=== PATIENT | female | born 1965 | race Caucasian/White ===

== ENCOUNTER 2021-12-09 10:08 | Emergency (ER) | payer BC, SELFPAY ==
--- NOTE | ~2021-12-09 | XR_ITS ---
EXAMINATION: XR chest 2V DATE: 12/09/2021 10:39 INDICATION: Cough. TECHNIQUE: Frontal and lateral views of the chest were obtained. COMPARISON: None. FINDINGS: There is mild atelectasis in the lower lung zones. No pleural effusion or pneumothorax. The heart size is normal. There are prominent paracardial fat pads. A surgical clip overlies the superio r mediastinum. IMPRESSION: 1. Mild atelectasis in the lower lung zones. Reviewed, dictated and finalized at location A.
[2021-12-09 10:22] VITALS: BP 116/67; PULSE 79; RESP 18; TEMP 36.6; O2SAT 96
--- NOTE | 2021-12-09 10:26 | ED.GENADULT ---
HPI - General Adult General Chief complaint: Upper Respiratory Infection Stated complaint: cough Time Seen by Provider: 12/09/21 10:20 Source: patient Mode of arrival: ambulatory Limitations: no limitations History of Present Illness HPI narrative: 56-year-old female presented for complaint of cough for 1 month. She states it is a tight nonproductive cough that causes pain in the front of the chest when coughing. She denies associated shortness of breath, wheezing, chest pain, dizziness, nausea, vomiting, diarrhea, fever or chills. She has taken several [id number] medications without any relief. Endorses sick contacts. She states she was in [place] approximately 1 month ago, and her was treated for pneumonia. Related Data Home Medications Medication Instructions Recorded Confirmed fluticasone propionate 1 spray INTRANASAL DIRECTED 12/09/21 12/09/21 levothyroxine 75 mcg PO DAILY 12/09/21 12/09/21 rosuvastatin 10 mg PO DAILY 12/09/21 12/09/21 umeclidinium-vilanterol [Anoro 1 inh INHALATION DIRECTED 12/09/21 12/09/21 Ellipta] Allergies Allergy/AdvReac Type Severity Reaction Status Date / Time No Known Allergies Allergy Verified 12/09/21 10:26 Review of Systems Review of Systems: CONSTITUTIONAL: Denies body aches, fever, chills, or sweats. EYES: Denies visual changes, redness, or discharge. ENT: Denies rhinorrhea, congestion, sore throat, or otalgia. CARDIOVASCULAR: Denies chest pain, palpitations, or edema. RESPIRATORY: Endorses cough denies dyspnea. GASTROINTESTINAL: Denies abdominal pain, nausea, vomiting, or diarrhea. GENITOURINARY: Denies dysuria or hematuria. SKIN: Denies rash, itching, or wounds. MUSCULOSKELETAL: Denies back pain, joint pain, or myalgia. NEUROLOGIC: Denies headache, numbness, tingling, or weakness. PSYCH: Denies depression or anxiety. All systems reviewed & are unremarkable except as noted in HPI and below PMFSH Comments At time of signature, I have reviewed and agree with nursing past medical, surgical, social and family history unless otherwise noted. Please see nursing chart for further information. There is no relevant family history pertinent to the presenting complaint Exam Narrative: GENERAL: Well-appearing, no acute distress. HEAD: Normocephalic, atraumatic. EYES: EOMI. Conjunctivae normal. ENT: Mucous membranes pink and moist. No rhinorrhea. NECK: Normal AROM. Supple. CHEST: No respiratory distress. Clear to auscultation. HEART: Regular rate and rhythm. No murmur appreciated. Normal peripheral pulses. ABDOMEN: Soft, nontender, nondistended, normal active bowel sounds. MUSCULOSKELETAL: No bony tenderness. EXTREMITIES: Normal range of motion. No edema. SKIN: Warm, dry, no rash. Capillary refill normal. Normal skin turgor. NEURO: No focal deficits. Alert and oriented x3. Gait steady. PSYCH: Normal affect. Course Course Emergency Course: Patient is aware of diagnosis, understands and agrees to treatment plan. Anticipatory guidance given. Patient agrees to follow-up as directed and is aware of reasons to seek care at the emergency department. Portions of this record may have been created with voice recognition software Level of Care: Express Care Visit Vital Signs Vital signs: Vital Signs Temperature 97.9 F 12/09/21 10:22 Pulse Rate 79 12/09/21 10:22 Respiratory Rate 18 12/09/21 10:22 Blood Pressure 116/67 12/09/21 10:22 Pulse Oximetry 96 12/09/21 10:22 Temperature 97.9 F 12/09/21 10:22 Pulse Rate 79 12/09/21 10:22 Respiratory Rate 18 12/09/21 10:22 Blood Pressure 116/67 12/09/21 10:22 Pulse Oximetry 96 12/09/21 10:22 Medical Decision Making MDM Narrative Medical decision making narrative: CXR reviewed with pt. Discussed treatment for bronchitis and supportive care. v/u. She is appropriate for outpt treatment and will f/u with PCP. Differential Diagnosis Differential Diagnosis: Influenza, covi
== END 2021-12-09 11:03 | disposition home or self-care (01) ==
PROVIDERS: Emergency Provider Nurse Practitioner Family; PCP Physician Assistant
DX: J40 Bronchitis, not specified as acute or chronic (principal); E78.00 Pure hypercholesterolemia, unspecified
CPT/HCPCS: 71046; 99213; G0463

== ENCOUNTER 2023-02-24 08:12 | Emergency (ER) | payer BC, SELFPAY ==
[2023-02-24 08:31] VITALS: BP 122/57; PULSE 86; RESP 16; TEMP 36.2; O2SAT 98
[2023-02-24 08:32] VITALS: BP 122/57; PULSE 86; RESP 16; TEMP 36.2; O2SAT 98
--- NOTE | 2023-02-24 08:48 | ED.FEMALEGU ---
HPI - Female Genitourinary General Chief complaint: Urogenital-Female Stated complaint: uti symptoms Time Seen by Provider: 02/24/23 08:44 Source: patient and RN notes reviewed Mode of arrival: ambulatory Limitations: no limitations History of Present Illness HPI Narrative: Patient presents today complaining of an 8 day history of urinary frequency, urgency, and dysuria for 8 days. States symptoms are somewhat intermittent. She also reports some mild suprapubic pain. Denies neck pain, fever, nausea or vomiting. She took 1 dose of azo 1 week ago without relief. Related Data Home Medications Medication Instructions Recorded Confirmed levothyroxine 75 mcg tablet 75 mcg PO DAILY 12/09/21 02/24/23 rosuvastatin 10 mg tablet 10 mg PO DAILY 12/09/21 02/24/23 umeclidinium 62.5 mcg-vilanterol 1 inh inhalation DIRECTED 12/09/21 02/24/23 25 mcg/actuation powdr for inhalation (Anoro Ellipta) dextroamphetamine-amphetamine ER 20 mg PO DAILY 02/24/23 02/24/23 20 mg 24hr capsule,extend release (Adderall XR) thyroid (pork) 30 mg tablet (STREETCAR OPERATOR 30 mg PO DAILY 02/24/23 02/24/23 Thyroid) Allergies Allergy/AdvReac Type Severity Reaction Status Date / Time No Known Allergies Allergy Verified 02/24/23 08:30 Review of Systems Review of Systems: CONSTITUTIONAL: Denies body aches, fever, chills, or sweats. EYES: Denies visual changes, redness, or discharge. ENT: Denies rhinorrhea, congestion, sore throat, or otalgia. CARDIOVASCULAR: Denies chest pain, palpitations, or edema. RESPIRATORY: Denies cough or dyspnea. GASTROINTESTINAL: Denies nausea, vomiting, or diarrhea.+ suprapubic pain GENITOURINARY: Denies hematuria.+ dysuria, urgency, frequency SKIN: Denies rash, itching, or wounds. MUSCULOSKELETAL: Denies back pain, joint pain, or myalgia. NEUROLOGIC: Denies headache, numbness, tingling, or weakness. PSYCH: Denies depression or anxiety. [facility] Past Medical History Medical History (Updated 02/24/23 @ 08:52 by Queenie Suh, [employer]ATE JUSTICE, [place]) ADD (attention deficit disorder) COPD (chronic obstructive pulmonary disease) High cholesterol Surgical History Surgical History (Updated 02/24/23 @ 08:50 by Queenie Suh, [employer]ATE JUSTICE, ) H/O partial thyroidectomy Comments At time of signature, I have reviewed and agree with nursing past medical, surgical, social and family history unless otherwise noted. Please see nursing chart for further information. There is no relevant family history pertinent to the presenting complaint Exam Narrative: GENERAL: Well-appearing, well-nourished, and in no acute distress. HEAD: Normocephalic, atraumatic. EYES: EOMI. No redness or drainage. Conjunctivae normal. ENT: Mucous membranes pink and moist. NECK: Normal AROM. CHEST: No respiratory distress. Clear to auscultation. HEART: Regular rate and rhythm. No murmur appreciated. ABDOMEN: Soft, nontender, nondistended, normal active bowel sounds.-CVAT EXTREMITIES: Normal range of motion. No edema. SKIN: Warm, dry, no rash. Capillary refill normal. Normal skin turgor. NEURO: No focal deficits. Alert and oriented x3. Gait steady. PSYCH: Normal affect. No signs of depression or anxiety. Course Course Level of Care: Express Care Visit Vital Signs Vital signs: Vital Signs Temperature 97.2 F L 02/24/23 08:31 Pulse Rate 86 02/24/23 08:31 Respiratory Rate 16 02/24/23 08:31 Blood Pressure 122/57 L 02/24/23 08:31 Pulse Oximetry 98 02/24/23 08:31 Oxygen Delivery Room Air 02/24/23 08:31 Temperature 97.2 F L 02/24/23 08:32 Pulse Rate 86 02/24/23 08:32 Respiratory Rate 16 02/24/23 08:32 Blood Pressure 122/57 L 02/24/23 08:32 Pulse Oximetry 98 02/24/23 08:32 Oxygen Delivery Room Air 02/24/23 08:32 Reviewed. Pt has been instructed to follow up with her PCP regarding her elevated blood pressure today. MDM - Female Genitourinary MDM Narrative Medical decision making narrative: AMNA ritchie
== END 2023-02-24 08:53 | disposition home or self-care (01) ==
PROVIDERS: Emergency Provider Nurse Practitioner; PCP Physician Assistant
DX: N30.01 Acute cystitis with hematuria (principal); J44.9 Chronic obstructive pulmonary disease, unspecified; E78.00 Pure hypercholesterolemia, unspecified; E89.0 Postprocedural hypothyroidism; F98.8 Other specified behavioral and emotional disorders with onset usually occurring in childhood and adolescence
CPT/HCPCS: 81003; 87086; 87088; 99213; G0463

== ENCOUNTER 2023-11-02 14:26 | Outpatient (CLI) | payer BC, SELFPAY ==
--- NOTE | ~2023-11-02 | XR_ITS ---
EXAMINATION: XR hand RT min 3V, XR wrist RT min 3V DATE: 11/02/2023 14:47 INDICATION: Radial sided right hand and wrist pain TECHNIQUE: 1. Posteroanterior, ulnar deviation, oblique, and lateral views of the right wrist were obtained. 2. Dorsal palmar, oblique and lateral views of the right hand were obtained. COMPARISON: None. FINDINGS: Alignment of the right hand and wrist is normal. No fracture identified. Polyarticular osteoarthriti s, moderate severity at the triscaphe joint and mild at the wrist, midcarpal, first carpal metacarpal , first metacarpophalangeal and multiple interphalangeal joints with distal predominance. Soft tissue s are unremarkable. IMPRESSION: 1. Polyarticular osteoarthritis at the right hand and wrist, moderate at the triscaphe joint and othe rwise mild. Reviewed, dictated and finalized at location A. MANAGER IMPRESSION: 1. Polyarticular osteoarthritis at the right hand and wrist, moderate at the tr iscaphe joint and otherwise mild.
== END 2023-11-02 14:27 | disposition home or self-care (01) ==
PROVIDERS: PCP Physician Assistant; Visit Provider Physician Assistant
DX: M19.041 Primary osteoarthritis, right hand (principal); M19.031 Primary osteoarthritis, right wrist
CPT/HCPCS: 73110; 73130

== ENCOUNTER 2024-01-14 10:31 | Outpatient (RCR) | payer BC, SELFPAY ==
--- NOTE | 2024-01-14 11:43 | OPREHPOC ---
Outpatient Therapy Plan of Care This is a Multidisciplinary Plan of Care that may contain components documented by all disciplines (PT, OT, and ST.) OT Problem 1 OT Problem #1 Knowledge Deficit OT Goal 1 Goal 1. Patient to be independent with instructed materials. 2. Patient to adhere to splint wearing schedule ( during the day, with activity). Target Visit 6 OT Problem 2 OT Problem #2 Pain OT Goal 1 Goal 1. Patient to report times of 0/10 pain in bilateral hands. 2. Patient to be independent with non-medication pain mgmt. Target Visit 6 OT Problem 3 OT Problem #3 Impaired Strength OT Goal 1 Goal 1. Patient to be able to tolerate gross wrist strengthening with 2 lb. free weight x10 reps without pain. 2. Patient to be able to tolerate gross medical staff assistant/pinch strengthening with yellow putt x5 minutes without pain. Target Visit 6
--- NOTE | 2024-01-14 11:43 | OTOPEVAL1 ---
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 She reports she is able to do all the things she needs to do for herself in a day, but just always has pain. States pinching to open up bags is the worst pain. Reports pain is localized to the thumbs, but that it does bother her DIP joints also. Reporting pain is always about 3/10, can get up to 10/10 on a bad day . Reported Pain Level Pain Score 3/10 at rest Assessment OT Clinical Summary Patient referred to OT with dx of bilateral basal joint arthritis of her thumbs. She has been experiencing pain with all ADLs and work tasks. Fabricated a custom short thumb spica splint this date to rest the affected 1st CMC joint. Instructed in gentle active ROM exercises. Continued skilled OT indicated for fabrication of a left thumb splint, education on joint protection principles, and progressive gentle strengthening to facilitate reduced pain and improved functional use of bilateral hands. Plan of Care Interventions Therapeutic Exercise,Manual Therapy,Therapeutic Activities,Check Out for Orthotic/Pr,Ultrasound, Paraffin OT Services Indicated Yes Treatment Frequency and 1x/week for 6 visits Duration These treatments will address the objective and functional deficits as defined above. The patient will be advanced safely and appropriately in order for the patient to progress towards his/her prior level of function. Additional exercises will be introduced and as well as a comprehensive home exercise program upon discharge, if needed, ?to ensure carryover of functional gains achieved in the clinic. This treatment plan has been reviewed and agreement upon by the patient.
--- NOTE | 2024-04-13 08:10 | OTOPDC ---
Assessment and note entered by Huber Aviles, BATSHEVAR/Bre, CHT Patient referred to OT for bilateral 1st CMC OA. Fabricated right orthotic at the initial OT evaluation appointment on 01/14/24. She never returned follow up appointments. Discharging from OT at this time. Thank you for this referral.
== END 2024-03-29 11:32 | disposition home or self-care (01) ==
LOC: ANHOT 10:31
PROVIDERS: PCP Physician Assistant; Visit Provider Plastic Surgery
DX: M18.9 Osteoarthritis of first carpometacarpal joint, unspecified (principal)
CPT/HCPCS: 97110; 97165; L3913

== ENCOUNTER 2025-05-21 12:04 | Outpatient (CLI) | payer OTHER, SELFPAY ==
--- NOTE | ~2025-05-21 | XR_ITS ---
EXAMINATION: XR sacroiliac joints min 3V, 05/21/2025 12:10 CDT HISTORY: Arthropathic psoriasis COMPARISON: No comparisons available. Findings: No acute fracture or malalignment. Sclerosis of the sacroiliac joint but no bridging osteophyte formation or erosions Soft tissues unremarkable. Impression: No acute fracture or malalignment. Reviewed, dictated and finalized at location A. Impression: No acute fracture or malalignment.
--- NOTE | ~2025-05-21 | XR_ITS ---
XR lumbar spine min 4V Indication: Arthropathic psoriasis Comparison: None Findings: The vertebral heights are intact. No fracture or subluxation. The disc heights are intact. Soft tissues unremarkable Impression: No acute abnormality. Reviewed, dictated and finalized at location A. Impression: No acute abnormality.
== END 2025-05-21 12:05 | disposition home or self-care (01) ==
LOC: MICIMG 12:07
PROVIDERS: PCP Physician Assistant; Visit Provider Internal Medicine
DX: L40.50 Arthropathic psoriasis, unspecified (principal)
CPT/HCPCS: 72110; 72202

== ENCOUNTER 2025-07-07 09:15 | Emergency (ER) | payer OTHER, SELFPAY ==
--- NOTE | ~2025-07-07 | CT_ITS ---
CT abdomen pelvis w con Clinical History: abd paIn . Comparison: None Technique: Axial images lung bases to symphysis pubis IV contrast information not listed in PACS Coronal, sagittal reformats CT images acquired with automatic exposure control for dose reduction DLP: 263 mGy-cm Findings: Lung bases: Clear. Visualized heart and pericardium: Unremarkable. Liver: Steatosis. Gallbladder: Unremarkable. Spleen: Unremarkable. Pancreas: Unremarkable. Adrenal glands: Unremarkable. Kidneys: Right kidney- No hydronephrosis. No renal stones. Left kidney- No hydronephrosis. No renal stones. Circumaortic renal vein. Distal esophagus/stomach: Unremarkable. Small bowel loops: Normal caliber and wall thickness. Colon: Diverticula. Wall thickening distally. Normal RLQ appendix. Nodes: No enlarged nodes. Peritoneum: No ascites. No free air. Urinary bladder: Unremarkable. Uterus: Unremarkable. Adnexa: No masses. Bones: No acute bony abnormality. Soft tissues: Unremarkable. Aorta: No aneurysm or dissection. Atherosclerotic disease. IVC: Unremarkable. Main portal vein/SMV/splenic vein: Patent. IMPRESSION: 1. Colitis of distal colon. Unclear if diverticular or inflammatory, but malignancy also possible. Reviewed, dictated and finalized at location R. PHONE MESSENGER IMPRESSION: 1. Colitis of distal colon. Unclear if diverticular or inflammatory, but malig morgan also possible.
[2025-07-07 09:28] VITALS: BP 132/70; PULSE 70; RESP 18; TEMP 36.4; O2SAT 100
--- NOTE | 2025-07-07 10:00 | ED.ABDPAIN ---
HPI - Abdominal Pain General Chief Complaint: Abdominal Pain Stated Complaint: constipated Time Seen by Provider: 07/07/25 09:56 Source: patient and family Mode of arrival: ambulatory Limitations: no limitations History of Present Illness HPI narrative: 60 years old white female came from home with her by private car complaining of constipation for the last 8 days, poor p.o. intake, started on methotrexate recently for psoriasis. Patient denies any fever, chills, vomiting, diarrhea, urinary symptoms, complaining of diffuse abdominal tenderness and discomfort, bloating, reported decreased appetite History of hypothyroidism and hyperlipidemia and psoriasis. Patient smokes cigarettes, drink occasionally, no drug use or abuse. Related Data Home Medications ?Medication ?Instructions ?Recorded ?Confirmed ?Last Taken ?Type levothyroxine 75 mcg tablet 75 mcg PO DAILY 12/09/21 12/21/23 Unknown History rosuvastatin 10 mg tablet 10 mg PO DAILY 12/09/21 12/21/23 Unknown History umeclidinium 62.5 mcg-vilanterol 1 inh inhalation DIRECTED 12/09/21 12/21/23 Unknown History 25 mcg/actuation powdr for inhalation (Anoro Ellipta) dextroamphetamine-amphetamine ER 20 mg PO DAILY 02/24/23 12/21/23 Unknown History 20 mg 24hr capsule,extend release (Adderall XR) thyroid (pork) 30 mg tablet (SAMPLE EXAMINER 30 mg PO DAILY 02/24/23 12/21/23 Unknown History Thyroid) Allergies Allergy/AdvReac Type Severity Reaction Status Date / Time No Known Allergies Allergy Verified 07/07/25 09:32 Review of Systems Review of Systems: All systems reviewed & are unremarkable except as noted in HPI and below PMFSH Past Medical History Medical History High cholesterol ADD (attention deficit disorder) COPD (chronic obstructive pulmonary disease) Surgical History Surgical History H/O partial thyroidectomy Social History Social History Do You Feel Safe in your Home?: Yes Lack of Transportation: No Lack of Food: Never True Current Housing: I Have Housing Concerned About Future Housing: No Difficulty Paying Gas/Electric Bills: No Difficulty Paying for Meds: No Currently Unemployed: No Education: High School Diploma/GED Difficulty w/ Childcare or Family Care: No Exam Narrative: General appearance: Well-developed, well-nourished Skin: Normal color Head: Normocephalic, nontraumatic Eyes: Clear conjunctiva ENT: Oropharynx normal, ears normal, nose normal Neck: Supple, nontender Chest and respiratory: Airway patent, no respiratory distress, no accessory muscle use Heart: Regular rate/rhythm Abdomen: Soft, diffuse abdominal tenderness mainly epigastric area, no guarding or rebound , no organomegaly, quiet bowel sounds Vascular: Normal peripheral pulses, normal capillary refill. 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 LOAN PROCESSOR is normal as tested, no gross motor deficit Course Vital Signs Vital signs: Vital Signs Temperature 36.4 C L 07/07/25 09:28 Pulse Rate 70 07/07/25 09:28 Respiratory Rate 18 07/07/25 09:28 Blood Pressure 132/70 07/07/25 09:28 Pulse Oximetry 100 07/07/25 09:28 Temperature 36.4 C L 07/07/25 09:28 Pulse Rate 87 07/07/25 12:51 Respiratory Rate 18 07/07/25 12:51 Blood Pressure 131/78 07/07/25 12:51 Pulse Oximetry 99 07/07/25 12:51 MDM - Abdominal Pain MDM Narrative Medical decision making narrative: Patient presents with abdominal pain and constipation Vital signs are stable Physical examination consistent with diffuse abdominal tenderness Differential diagnosis include constipation, medication induced, gastritis, pancreatitis, colitis, diverticulitis, urinary tract infection Blood workup today includes CBC, CMP, lipase and lactic acid showed WBC 10.4, OTHERWISE WITHIN NORMAL LIMIT URINALYSIS SHOWED NO SIGNIFICANT ABNORMALITY CT abdomen and pelvis with IV contrast showed COLITIS, MALIGNANCY ALSO POSSIBLE. DIAGNOSIS ABDOMINAL PAIN, COLITIS DISCHARGED ON LEVAQUIN AND FLAGYL THE PT WAS DISCHARGED TO HOME.THE PT,S CONDITION UPON DISCHARGE WAS FAIR,EDUCATION WAS PROVIDED TO THE PT IN REFERENCE TO THE FINAL IMPRESSION,DISCHARGE STUDY RESULTS,TREATMENT,PROGNOSIS AND NEED FOR FOLLOW UP . Differential Diagnosis Differential diagnosis: Likely other (As above) Medical Records Attestation: I reviewed the patient's medical records. Lab Data Attestation: I reviewed the patient's lab results. 07/07/25 10:56 07/07/25 10:56 Labs: Lab Results 07/07/25 07/07/25 Range/Units 10:12 10:56 WBC 10.4 H (4.5-10.0) K/mm3 RBC 5.54 H (4.2-5.4) M/mm3 Hgb 14.7 (12.0-15.0) g/dL Hct 46.1 (37.0-47.0) % MCV 83.2 (80-100) fl MCH 26.5 (26-34) pg MCHC 31.9 L (32-36) g/dl RDW 14.4 (11.5-14.5) % Plt Count 266 (150-375) k/mm3 MPV 9.5 (7.4-10.4) fl Immature Gran % (Auto) 0.4 (0-0.5) % Neut % (Auto) 78.1 H (45.5-73.1) % Lymph % (Auto) 14.3 L (18.3-44.2) % [place] % (Auto) 4.2 (2.6-8.5) % Eos % (Auto) 2.6 (0-4.4) % Baso % (Auto) 0.4 (0.2-1.2) % Lymph # (Auto) 1.48 (0.9-3.2) K/mm3 [place] # (Auto) 0.4 (0.1-0.6) K/mm3 Eos # (Auto) 0.3 (0-0.3) K/mm3 Baso # (Auto) 0.0 (0.0-0.1) K/mm3 Abs Immat Gran (auto) 0.04 H (0.00-0.031) K/mm3 Absolute Neuts (auto) 8.1 H (1.3-6.7) K/mm3 Absolute Nucleated RBC 0.000 (0.0-0.012) K/mm3 Nucleated RBC % 0.0 (0.0-0.2) % PT 12.7 (11.1-14.7) Seconds INR 0.9 APTT 27.6 (22.3-36.8) Seconds Sodium 135 L (137-145) mmol/L Potassium 4.4 (3.4-5.0) mmol/L Chloride 102 (98-107) mmol/L Carbon Dioxide 26 (22-30) mmol/L Anion Gap 7 (4-12) mmol/L BUN 16 (7-17) mg/dL Creatinine 0.97 (0.7-1.0) mg/dL Estim Creat Clear Calc 56 ml/min Estimated GFR 59 (59 - ) Glucose 101 (65-110) mg/dL Lactic Acid 0.8 (0.7-2.0) mmol/L Calcium 9.3 (8.4-10.2) mg/dL Total Bilirubin 0.9 (0.2-1.3) mg/dL AST 29 (14-36) U/L ALT 20 (6-35) U/L Alkaline Phosphatase 82 (38-126) U/L Troponin I < 0.012 (0.000-0.034) ng/mL Total Protein 8.1 (6.3-8.2) g/dL Albumin 4.7 (3.5-5.1) g/dL Lipase 292 (23-300) U/L Urine Color Yellow (Yellow) Urine Appearance Cloudy H (Clear) Urine pH 7.0 (5.0-9.0) Ur Specific [place] 1.010 (1.001-1.035) Urine Protein Negative (Negative) mg/dL Urine Glucose (UA) Negative (Negative) mg/dL Urine Ketones Negative (Negative) mg/dL Ur Blood (Man) Negative (Negative) Urine Nitrate Negative (Negative) Urine Bilirubin Negative (Negative) Urine Urobilinogen 0.2 (<2.0) mg/dL Leukocyte Esterase Rfl Trace H (Negative) LISA/UL Urine RBC 0-2 (0-2) /hpf Urine WBC 0-5 (0-3) /hpf Ur Squamous Epith Cells Occasional (Few) /hpf Urine Bacteria None seen /hpf Urine Casts 0-2 Imaging Data Radiologist's impression: ITS Impressions Abdomen/Pelvis CT 07/07/25 12:01 IMPRESSION: 1. Colitis of distal colon. Unclear if diverticular or inflammatory, but malignancy also possible. Critical Care Time Critical Care Time Critical Care Time: No Discharge Plan Discharge Clinical Impression: Colitis Patient Disposition: Home Condition: Stable Instructions: Antibiotic Form, Diverticulitis Diet (ED), Colitis (ED) Additional Instructions: RETURN IF SYMPTOMS ARE WORSENING , CALL YOUR FAMILY PHYSICIAN FOR APPOINTMENT, TAKE TYLENOL NEEDED FOR ACHES AND PAIN, CONTINUE HOME MEDICATIONS. Patient Language: Yoruba Prescriptions: New levofloxacin 750 mg tablet 750 mg PO DAILY Qty: 7 5RF metronidazole 500 mg tablet 500 mg PO Q8H 7 Days Qty: 21 0RF No Action levothyroxine 75 mcg tablet 75 mcg PO DAILY rosuvastatin 10 mg tablet 10 mg PO DAILY Anoro Ellipta 62.5-25 mcg/actuation blister with device 1 inh INHALATION DIRECTED dextroamphetamine-amphetamine [Adderall XR] 20 mg capsule,extended release 24hr 20 mg PO DAILY SAMPLE EXAMINER Thyroid 30 mg tablet 30 mg PO DAILY cephalexin 500 mg capsule 500 mg PO Q6H 7 Days Qty: 28 0RF Follow-up/Referrals: Parent,ERVIN Barbosa [Primary Care Provider, Unknown] Barrera Fortune MD [Physician, Gastroenterology] - 07/13/25
--- OUTSIDE RECORDS SUMMARY | 2025-07-07 10:04 | XMS_ITS | Clinical Summary ---
Author Organization [facility] Medical Office Building [address] [place] [id number] Care Team Providers Care Audio Visual Production Specialist Name Role Phone Parent, Екатерина MUELLER Primary Care Provider [phone] Surgical History Surgery Date Site/Laterality Comments ENDOMETRIAL ABLATION Family History Medical History Relation Name Comments Breast cancer Sister Relation Name Status Comments Sister Social History Tobacco Use Types Packs/Day Years Used Date Smoking Tobacco: Never Assessed Comments No Sex and Gender Information Value Date Recorded Sex Assigned at Not on file 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 Gender Identity Not on file Sexual Orientation Not on file Obstetrics History Para Term AB IAB SAB Ectopic Multiple Livin g Live Births 4 4 4 Date Outcome GA Total Labor Labor/2nd/3rd Weight Sex Type Anes PTL Linda A1 A5 Name Clin Term Term Term Term Last Filed Vital Signs Vital Sign Reading Time Taken Comments Blood Pressure 114/53 03/29/2017 8:22 AM CDT Pulse 71 03/29/2017 8:22 AM CDT Temperature 36.6 C (97.8 F) 03/29/2017 8:22 AM CDT Respiratory Rate - - Oxygen Saturation 97% 03/29/2017 8:22 AM CDT Inhaled Oxygen Concentration - - Weight 77.7 kg (171 lb 6.4 oz) 03/29/2017 8:22 A M CDT Height 172.7 cm (5' 8) 03/29/2017 8:22 AM CDT Body Mass Index 26.06 03/29/2017 8:22 AM CDT Plan of Treatment Health Maintenance Due Date Last Done Comments Cervical Cancer Screening 1966 Colon Cancer Screening-Colonoscopy 1966 Depression Screening 1966 Hepatitis C Screening 1966 Hepatitis B Screening 02/20/1984 Regular Well Visit/Exam 18-64 02/20/1984 Pneumococcal vaccine <65 (1 of 2 - PCV) 1985 Zoster Vaccine (2 of 2) 09/27/2022 08/02/2022 Covid-19 Vaccine (4 - 2024-2 6 season) 2025 08/02/2022, 09/08/2021, 11/01/2020 Influenza Vaccine (#1) 2025 , 07/06/2022, 09/08/2021, Additional history exists Breast Cancer Screening-Mammogram 02/16/2026 02/16/2025, 10/13/2023, 09/18/2020, Additional history exists DTaP/Tdap/Td Vaccine (3 - Td or Tdap) 10/04/2033 10/04/2023, 10/14/2011 Procedures Procedure Name Priority Date/Time Associated Diagnosis Comments SCREENING MAMMOGRAM BILATERAL W YASSINE Schedule Routine, Read Routine (OP Routine) 02/16/2025 10:50 AM CDT Encounter for other screening for malignant neoplasm of breast from Last 3 Months or Most Recently Relevant to Health Maintenance Results * Screening Mammogram Bilateral W Yassine (02/16/2025 10:50 AM CDT) Anatomical Region Laterality Modality Breast Bilateral Mammography Impressions 02/16/2025 11:05 AM CDT Bilateral No evidence of malignancy in either breast. OVERALL BI-RADS FINAL ASSESSMENT: 2 - Benign RECOMMENDATION: Recommend bilateral annual screening mammography. Narrative 02/16/2025 11:05 AM CDT EXAMINATION: Screening Mammogram Bilateral W Yassine: 02/16/2025 COMPARISON: Relevant prior studies available at the time of interpretation were reviewed. TECHNIQUE: Mammography was performed with 2D and digital breast tomosynthesis (DBT) images. CAD was utilized. BREAST PARENCHYMAL COMPOSITION: There are scattered areas of fibroglandular density. FINDINGS: Bilateral There is no suspicious mass, calcification, or architectural distortion in either breast. us Екатерина MUELLER IMG MAMMO PROCEDURES Final R esult from Last 3 Months or Most Recently Relevant to Health Maintenance Insurance Care Teams Audio Visual Production Specialist Relationship Specialty Start Date End Date Екатерина Bowers PA PCP - General 06/27/20
--- OUTSIDE RECORDS SUMMARY | 2025-07-07 10:04 | XMS_ITS | Encounter Summary ---
Author Organization 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 Historical Provider Final Res ult documented in this encounter Visit Diagnoses Not on filedocumented in this encounter Care Teams Museum Exhibit Technician Relationship Specialty Start Date End Date Stephanie Guzmán MD PCP - General 05/15/19 06/26/20 Екатерина Bowers PA PCP - General 06/27/20 documented as of this encounter
--- OUTSIDE RECORDS SUMMARY | 2025-07-07 10:04 | XMS_ITS | Data Portability ---
Author Organization [facility] Address [address] [address] Care Team Providers Care Rn Surgery Name Role Phone MILTON JEONG Hand Shoe Cutter MED EVENING OR NIGHT NURSE SUPERVISOR, TEAM Rn Case Manager Unavailabl e Assessment No assessment recorded. Plan of Treatment Reminders Order Date Submit Date Provider Last Modified By Organization Details Last Modified Time Details Appointments None recorded. Lab T4, free, serum 2024 025 [place], [address], [address], 5 08:12:37 TSH, serum or plasma 2024 025 [place] [facility], [address], [address], 5 08:12:38 CBC w/ auto diff 2024 025 [place] [facility], [address], [address], 5 08:12:36 lipid panel, serum 2024 025 [place] [facility], [address], [address], 5 08:12:33 CMP, serum or plasma 2024 025 [place] [facility], [address] [place], [address], 08:12:35 Referral None recorded. Procedures cryosurgery (PROC) 2023 024 [facility] Not available 16:00:13 Surgeries None recorded. Imaging MAMMO, screening, digital, bilateral 2024 [facility] Scheduling, [address] [place] [address], [address], 12:07:52 bone density 2024 [facility] Scheduling, [address] [place] [address], [address], 19:47:50 Medication Orders dextroamphe tamine-amph etamine ER 20 mg 24hr capsule,ext end release [address] [id number], [address] [place], [place], [id number], 14:23:50 dextroamphe tamine-amph etamine ER 20 mg 24hr capsule,ext end release [address] [facility][id number], [address] [place], [place], [id number], 14:44:54 dextroamphe tamine-amph etamine ER 20 mg 24hr capsule,ext end release 2024 025 [facility]92511, [address] [place], [place], [id number], 5 12:34:08 dextroamphe tamine-amph etamine ER 20 mg 24hr capsule,ext end release 2023 024 [facility] #20830, [address] [place], [place], [id number], 10:52:53 ketoconazol e 200 mg tablet 2023 [facility] #39399, [address] [facility], [place], [place], [id number], 10:38:13 ketoconazol e 2 % shampoo 2023 [facility] #88447, [address] [facility], [place], [place], [id number], 4 10:38:14 dextroamphe tamine-amph etamine ER 20 mg 24hr capsule,ext end release 2023 [facility] #35862, [address] [facility], [place], [place], [id number], 11:14:59 Patient TargetsNo targets recorded. Patient InstructionsNo instructions recorded. Reason for Referral None Reported. Results Created Date Observation Date Name Description Value Unit Range Abnormal Flag Note LastModifiedBy Organization Detail LastModifiedTime 12/07/1912/07/2024 LIPID PANEL , [place] cholesterol, total 161 mg/dL <200 normal Not Available [facility] [address] [place] [address] [place], [address], 12/07/2024 08:12:33 12/07/1912/07/2024 LIPID PANEL , [place] HDL cholesterol 60 mg/dL > or = 50 normal Not Available [facility] [address] [address] [place], [address], 12/07/2024 08:12:33 12/07/1912/07/2024 LIPID PANEL , [place] triglyceride s 130 mg/dL <150 normal Not Available [employer] [address] [address] [place], [address], 12/07/2024 08:12:33 12/07/1912/07/2024 LIPID PANEL , [place] LDL-choleste rol 78 mg/dL _(mandy c) normal Refer ence range : <100 Jaime able range <100 mg/dL for prima ry preve ntion ; <70 mg/dL for patie nts with CHD or diabe tic patie nts with > or = 2 CHD risk facto rs. LDL-C is now calcu lated using the Yulissa n-Hop kins jose manuelu ramone n, which is a valid ated novel metho d provi ding daniela r accur acy than the Fried lauren equat ion in the estim ation of LDL-C . Yulissa marroquin SS et al. LEAH. 2013; 310(1 0): 2061- 2068 (http ://ed ucati on.Qu Lisandra Easyaula. com/f aq/FA Q164) Not Available [facility] [address], [address], 12/07/2024 08:12:33 12/07/1912/07/2024 LIPID PANEL , [place] chol/HDLC ratio 2.7 (calc ) <5.0 normal Not Available [address], [address], 12/07/2024 08:12:33 12/07/1912/07/2024 LIPID PANEL , [place] non HDL cholesterol 101 mg/dL _(mandy c) <130 normal For patie nts with diabe armin plus 1 major ASCVD risk facto r, treat ing to a non-H DL-C goal of <100 mg/dL (LDL- C of <70 mg/dL ) is consi dered a thera peuti c optio n. Not Available [address], [address], 12/07/2024 08:12:33 12/07/1912/07/2024 COMPR EHENS NATALYA METAB OLIC PANEL glucose 96 mg/dL 65-99 normal Fasti ng refer ence inter mary alice Not Available [employer] [facility] [address], [address], 12/07/2024 08:12:35 12/07/19 25 12/07/2024 COMPR EHENS NATALYA METAB OLIC PANEL urea nitrogen (BUN) 16 mg/dL 7-25 normal Not Available [address], [address], 12/07/2024 08:12:35 12/07/19 25 12/07/2024 COMPR EHENS NATALYA METAB OLIC PANEL creatinine 0.87 mg/dL 0.50-1 .03 normal Not Available [address], [address], 12/07/2024 08:12:35 12/07/19 25 12/07/2024 COMPR EHENS NATALYA METAB OLIC PANEL eGFR 77 mL/mi n/1.7 3m2 > or = 60 normal Not Available [address], [address], 12/07/2024 08:12:35 12/07/19 25 12/07/2024 COMPR EHENS NATALYA METAB OLIC PANEL BUN/creatini ne ratio SEE NOTE: (calc ) 6-22 Not Repor jaiden: BUN and Creat inine are withi n refer ence range . Not Available [address], [address], 12/07/2024 08:12:35 12/07/19 25 12/07/2024 COMPR EHENS NATALYA METAB OLIC PANEL sodium 137 mmol/ L 135-14 6 normal Not Available [address], [address], 12/07/2024 08:12:35 12/07/19 25 12/07/2024 COMPR EHENS NATALYA METAB OLIC PANEL potassium 4.7 mmol/ L 3.5-5. 3 normal Not Available [address], [address], 12/07/2024 08:12:35 12/07/19 25 12/07/2024 COMPR EHENS NATALYA METAB OLIC PANEL chloride 102 mmol/ L 98-110 normal Not Available [address], [address], 12/07/2024 08:12:35 12/07/19 25 12/07/2024 COMPR EHENS NATALYA METAB OLIC PANEL carbon dioxide 28 mmol/ L 20-32 normal Not Available [address], [address], 12/07/2024 08:12:35 12/07/19 25 12/07/2024 COMPR EHENS NATALYA METAB OLIC PANEL calcium 10.2 mg/dL 8.6-10 .4 normal Not Available [address], [address], 12/07/2024 08:12:35 12/07/19 25 12/07/2024 COMPR EHENS NATALYA METAB OLIC PANEL protein, total 7.6 g/dL 6.1-8. 1 normal Not Available [address], [address], 12/07/2024 08:12:35 12/07/19 25 12/07/2024 COMPR EHENS NATALYA METAB OLIC PANEL albumin 4.9 g/dL 3.6-5. 1 normal Not Available [address], [address], 12/07/2024 08:12:35 12/07/19 25 12/07/2024 COMPR EHENS NATALYA METAB OLIC PANEL globulin 2.7 g/dL_ (calc ) 1.9-3. 7 normal Not Available [address], [address], 12/07/2024 08:12:35 12/07/19 25 12/07/2024 COMPR EHENS NATALYA METAB OLIC PANEL albumin/glob ulin ratio 1.8 (calc ) 1.0-2. 5 normal Not Available [address], [address], 12/07/2024 08:12:35 12/07/19 25 12/07/2024 COMPR EHENS NATALYA METAB OLIC PANEL bilirubin, total 0.5 mg/dL 0.2-1. 2 normal Not Available [address], [address], 12/07/2024 08:12:35 12/07/19 25 12/07/2024 COMPR EHENS NATALYA METAB OLIC PANEL alkaline phosphatase 55 U/L 37-153 normal Not Available [address], [address], 12/07/2024 08:12:35 12/07/19 25 12/07/2024 COMPR EHENS NATALYA METAB OLIC PANEL AST 18 U/L 10-35 normal Not Available [address], [address], 12/07/2024 08:12:35 12/07/19 25 12/07/2024 COMPR EHENS NATALYA METAB OLIC PANEL ALT 14 U/L 6-29 normal Not Available [address], [address], 12/07/2024 08:12:35 12/07/19 25 12/07/2024 CBC (INCL UDES DIFF/ PLT) white blood cell count 7.2 thous and/u L 3.8-10 .8 normal Not Available [address], [address], 12/07/2024 08:12:36 12/07/19 25 12/07/2024 CBC (INCL UDES DIFF/ PLT) red blood cell count 5.31 mi on/uL 3.80-5 .10 high Not Available [address], [address], 12/07/2024 08:12:36 12/07/1912/07/2024 CBC (INCL UDES DIFF/ PLT) hemoglobin 14.7 g/dL 11.7-1 5.5 normal Not Available [address], [address], 12/07/2024 08:12:36 12/07/1912/07/2024 CBC (INCL UDES DIFF/ PLT) hematocrit 45.5 % 35.0-4 5.0 high Not Available [facility] [address], [address], 12/07/2024 08:12:36 12/07/1912/07/2024 CBC (INCL UDES DIFF/ PLT) MCV 85.7 fL 80.0-1 00.0 normal Not Available [address], [address], 12/07/2024 08:12:36 12/07/1912/07/2024 CBC (INCL UDES DIFF/ PLT) MCH 27.7 pg 27.0-3 3.0 normal Not Available [address], [address], 12/07/2024 08:12:36 12/07/1912/07/2024 CBC (INCL UDES DIFF/ PLT) MCHC 32.3 g/dL 32.0-3 6.0 normal For adult s, a sligh t decre ase in the calcu lated MCHC value (in the range of 30 to 32 g/dL) is most likel y not clini deuce signi jillian t; rainer er, it shoul d be inter prete d with cauti on in corre latio n with other red cell mahesh eters and the patie nt's clini mandy condi tion. Not Available [facility] [address], [address], 12/07/2024 08:12:36 12/07/19 12/07/2024 CBC (INCL UDES DIFF/ PLT) RDW 13.7 % 11.0-1 5.0 normal Not Available [address], [address], 12/07/2024 08:12:36 12/07/1912/07/2024 CBC (INCL UDES DIFF/ PLT) platelet count 243 thous and/u L 140-40 0 normal Not Available [address], [address], 12/07/2024 08:12:36 12/07/1912/07/2024 CBC (INCL UDES DIFF/ PLT) MPV 10.8 fL 7.5-12 .5 normal Not Available [address], [address], 12/07/2024 08:12:36 12/07/1912/07/2024 CBC (INCL UDES DIFF/ PLT) absolute neutrophils 4802 cells /uL 1500-7 800 normal Not Available [address], [address], 12/07/2024 08:12:36 12/07/19 25 12/07/2024 CBC (INCL UDES DIFF/ PLT) absolute lymphocytes 1670 cells /uL 850-39 00 normal Not Available [address], [address], 12/07/2024 08:12:36 12/07/1912/07/2024 CBC (INCL UDES DIFF/ PLT) absolute monocytes 418 cells /uL 200-95 0 normal Not Available [address], [address], 12/07/2024 08:12:36 12/07/19 25 12/07/2024 CBC (INCL UDES DIFF/ PLT) absolute eosinophils 281 cells /uL 15-500 normal Not Available [address], [address], 12/07/2024 08:12:36 12/07/19 25 12/07/2024 CBC (INCL UDES DIFF/ PLT) absolute basophils 29 cells /uL 0-200 normal Not Available [address], [address], 12/07/2024 08:12:36 12/07/1912/07/2024 CBC (INCL UDES DIFF/ PLT) neutrophils 66.7 % normal Not Available [address], [address], 12/07/2024 08:12:36 12/07/1912/07/2024 CBC (INCL UDES DIFF/ PLT) lymphocytes 23.2 % normal Not Available [facility] [address], [address], 12/07/2024 08:12:36 12/07/1912/07/2024 CBC (INCL UDES DIFF/ PLT) monocytes 5.8 % normal Not Available [address], [address], 12/07/2024 08:12:36 12/07/1912/07/2024 CBC (INCL UDES DIFF/ PLT) eosinophils 3.9 % normal Not Available [facility] [address], [address], 12/07/2024 08:12:36 12/07/1912/07/2024 CBC (INCL UDES DIFF/ PLT) basophils 0.4 % normal Not Available [facility] [address], [address], 12/07/2024 08:12:36 12/07/1912/07/2024 T4, FREE T4, free 1.5 NG/dL 0.8-1. 8 normal Not Available [address], [address], 12/07/2024 08:12:37 12/07/19 25 12/07/2024 TSH TSH 0.94 mIU/L 0.40-4 .50 normal Not Available [employer] [address] [address]ratio n, [place] Rojas, [address], 12/07/2024 08:12:38 07/12/20 24 LDCT, chest , for lung cance r scree sahil [facility] [address] [place] [address] [facility] [address] [place] [address] EXAM: LUNG SCREEN ING LOW-DO SE CT THORAX WITHOU T CONTRA ST Access ion: [id number] DATE: 2023 HISTOR Y: Asympt omatic patien t meetin g NCCN high-r isk criter ia for lung screen ing. COMPAR KRISTI: CT lung screen ing 2022 TECHNI QUE: Noncon trast, helica l, low-do se CT (LDCT) chest per standa rd depart mental protoc ol. Automa jaiden exposu re contro l was utiliz ed for dose reduct ion. FINDIN GS: Lung Screen ing Specif ic (LUNG- RADS): No suspic ious pulmon gelacio nodule s. Previo usly seen right upper lobe nodule is not visual ized. Potent ially Signif icant Incide ntals (LUNG- RADS catego ry S): None. Pulmon gelacio Incide ntals: Modera te upper lobe predom inant centri lobula r emphys lex. Bibasi lar subseg mental atelec tasis. Other Incide ntals: Mild athero sclero tic plaque of the thorac ic aorta and ronquillo ry arteri es. Coloni c divert iculos is. IMPRES MONTSERRAT: 1. LUNG-R ADS catego ry 1: Negati ve-no nodule s and defini tely benign nodule s. 2. LUNG-R ADS catego ry S: Negati ve, no new/un known potent ially signif icant incide ntal findin gs requir ing urgent additi onal evalua tion. 3. Other incide ntal findin gs as above. RECOMM ENDATI ONS: Follow -up LDCT Chest in 12 months (on or around 2024). Referr ed By: DEWAYNE REYES [facility] on[facility] Signed By: Coy Garcia MD on 2023 2:46 PM Interp reted By: Coy Garcia MD, 2023 2:41 PM [email or web address] [facility] [address] [facility], [place], [address], 07/13/2024 11:08:55 02/17/20 25 02/16/2025 MAMMO , scree sahil, digit al, bilat eral No observ ation record ed. [facility] [address], [address], 02/16/2025 17:16:01 02/17/20 25 02/16/2025 bone densi ty No observ ation record ed. [facility] [address], [address], 2025 16:28:52 05/21/20 25 05/21/2025 XR, sacro iliac joint (s) No observ ation record ed. [email or web address] [facility] [address], [place], [address], 05/21/2025 16:37:11 Result Notes Documentation Provider Name and Address Organization Details Recorded Time Ldct, Chest, For Lung Cancer Screening : [facility] [address] [address] EXAM: LUNG SCREENING LOW-DOSE CT THORAX WITHOUT CONTRAST DATE: 07/11/2024 HISTORY: Asymptomatic patient meeting NCCN high-risk criteria for lung screening. COMPARISON: CT lung screening 07/09/2023 TECHNIQUE: Noncontrast, helical, low-dose CT (LDCT) chest per standard departmental protocol. Automated exposure control was utilized for dose reduction. FINDINGS: Lung Screening Specific (LUNG-RADS): No suspicious pulmonary nodules. Previously seen right upper lobe nodule is not visualized. Potentially Significant Incidentals (LUNG-RADS category S): None. Pulmonary Incidentals: Moderate upper lobe predominant centrilobular emphysema. Bibasilar subsegmental atelectasis. Other Incidentals: Mild atherosclerotic plaque of the thoracic aorta and coronary arteries. Colonic diverticulosis. IMPRESSION: 1. LUNG-RADS category 1: Negative-no nodules and definitely benign nodules. 2. LUNG-RADS category S: Negative, no new/unknown potentially significant incidental findings requiring urgent additional evaluation. 3. Other incidental findings as above. RECOMMENDATIONS: Follow-up LDCT Chest in 12 months (on or around 07/12/2025). Referred By: MITCHELL REYES Interpreted By: Chandrakant Garcia MD, 07/12/2024 2:41 PM ERVIN Dia Attn: Accounting,[address] [place], [address], [facility] 07/13/2024 11:08:55 Problems Name Problem SNOMED Code Status Onset Date Resolution Date Notes Provider Name and Address Organization Details Recorded Time Increase d frequenc y of urinatio n 472902832 Completed 201201/27/2018 Location : None;Sev erity: Moderate ;Progres s: Stable;A dded By: Beau Boothe i dd to Current Problems : NO ERVIN Dia Attn: Accounting ,[address] [place], [address] , [facility] 8 11:19:36 Abdomina l pain [id number] Completed 201212/31/2012 Location : None;Sev erity: Moderate ;Progres s: Stable;A dded By: Beau Boothe i dd to Current Problems : NO Not Available [facility] 7 11:33:56 Screenin g for malignan t neoplasm of colon Completed 201505/15/2019 Location : None;Sev erity: Moderate ;Progres s: Stable;A dded By: Melissa Guzmán;Add to Current Problems : YES ERVIN Dia Attn: Accounting ,[address] [place], [address] , [facility] 9 11:39:57 Tobacco dependen ce syndrome [id number] Completed 201505/24/2016 Location : None;Sev erity: Moderate ;Progres s: Stable;A dded By: Melissa Guzmán;Add to Current Problems : YES Not Available [facility] 7 11:33:56 Hyperlip idemia 49516335 Active 2016 Not Available [facility] 2 10:23:32 Hypothyr oidism 99095920 Active 2016 Not Available [facility] 2 10:23:32 Disorder of cervical spine 705574489 Completed 201609/15/2019 s/p surgery ERVIN Dia Attn: Accounting ,[address] [place], [address] , [facility] 0 10:24:24 Gastroes ophageal reflux disease 661071010 Completed 201709/15/2019 ERVIN Dia Attn: Accounting ,[address] [place], [address] , [facility] 0 10:24:33 Depressi ve disorder 16274644 Completed 201705/15/2019 ERVIN Dia Attn: Accounting ,[address] [place], [address] , [facility] 9 11:40:11 Chronic obstruct natalya pulmonar y disease 39719446 Active 2018 Not Available [facility] 2 10:23:32 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 provider found 07/26/2024 OV: No significant respiratory issues over the past year. Rare use of her albuterol. No exacerbations. Using Anoro. 07/15/2023 OV: Overall doing very well from a respiratory standpoint. She did have 1 upper respiratory tract infection treated with antibiotics. Remains on her Anoro. Rarely using albuterol. 12/30/2022 OV: No significant issues since her last visit. Anoro controlling her symptoms well. No exacerbations. 06/25/2022 OV: Overall, no significant issues since her last visit. No hospitalizations or emergency room visits. Minimal respiratory symptoms, well controlled on Anoro. Rarely using her albuterol. 05/14/2021 OV: Overall she has been doing very well. She actually was diagnosed with SARS-CoV-2 pneumonia in February. At that time she had mostly upper respiratory symptoms and a headache. She describes a sore throat, headache, and sneezing. Has not required hospitalization. Was never on oxygen. She has not gone to any urgent care centers. Has not been on antibiotics or steroids since her last visit. Overall feeling well 11/06/2020 OV: She has been doing well since her last visit, no significant issues. No emergency room visits, hospitalizations, or urgent care visits. Has not required prednisone for exacerbation. Symptoms are stable and at baseline. Continues on Anoro. Has Flonase, stopped Claritin. Claritin seem to be giving her headache. Received the [employer] coronavirus vaccine. She says that her fatigue has improved. She did not get the sleep study, does not feel that she needs it. 05/07/2020 OV: Mona Greene is a 59-year-old female with a past medical history of COPD, former tobacco use, hypothyroidism who presents today for follow-up. Since her last visit she says I am good. She denies any significant shortness of breath, cough, mucus production, or wheezing. She continues to use her [place] every single day. Rarely needs to use her rescue inhaler on average 0-4 times per month. She has had no emergency department visits, urgent care visits, hospitalizations since her last visit. She is no longer taking Singulair due to it causing a headache. She denies any previous history of hospitalizations. She is never been intubated due to COPD. She does note that she has been feeling a little bit more tired. She says that she has trouble sleeping. Specifically she says feels like she is thinking while she is sleeping and is not fully getting to sleep. Her tells her that she does not snore and there has not been any witnessed apnea. She is not having any issues staying awake during the day. No morning headaches. Past Medical History: Diagnosis Date Dyspnea on exertion Emphysema of lung ([facility]) 02/18/2017 Moderate COPD Hypothyroidism 1987 hyperthyroid, s/p partial thyroidectomy Plantar fasciitis Right knee injury Past Surgical History: Procedure Laterality Date PARTIAL EXCISION THYROID,UNILAT Social History Tobacco Use Smoking status: Former Current packs/day: 0.00 Average packs/day: 1 pack/day for 33.0 years (33.0 ttl pk-yrs) Types: Cigarettes Start date: 06/30/1983 Quit date: 06/30/2016 Years since quittin.0 Smokeless tobacco: Never Vaping Use Vaping status: Never Used Substance Use Topics Alcohol use: Yes Comment: 2 DRINKS WEEKLY Drug use: No Family History Problem Relation Name Age of Onset Hypertension Sister Kyung Breast Cancer Sister Kyung Hyperlipidemia Sister Kyung Hypertension Brother bernice Other (heart issues) Brother bernice Lung Cancer Mother Shahrzad Cancer Mother Shahrzad Lung Cancer Father Other (abdominal aortic aneurysm) Father 58 Colon Cancer Paternal Grandmother Other (pancreatic cancer) Paternal Grandfather Lung Cancer Paternal Aunt Lung Cancer Paternal Uncle 4 Stent Cardiac Brother ap 42 Current Outpatient Medications Medication Sig Dispense Refill ADDERALL XR 20 MG 24 hr capsule one po daily prn as directed albuterol sulfate HFA 108 (90 Base) MCG/ACT inhaler INHALE 2 PUFFS INTO THE LUNGS EVERY 4 HOURS NEEDED FOR WHEEZING OR SHORTNESS OF BREATH 18 g 11 ANORO ELLIPTA 62.5-25 MCG/ACT inhaler USE 1 INHALATION BY MOUTH INTO THE LUNGS DAILY 180 each 3 aspirin 325 MG tablet fluticasone propionate (FLONASE) 50 MCG/ACT nasal spray SPRAY 1 SPRAY BY NASAL ROUTE EVERY DAY 48 mL 1 levothyroxine 50 MCG tablet Take 1 tablet (50 mcg total) by mouth daily. Multiple Vitamins-Minerals (ALIVE ONCE DAILY WOMENS) Tab Take 1 tablet by mouth daily. rosuvastatin 10 MG tablet Take 1 tablet (10 mg total) by mouth nightly at bedtime. 2 FLUTICASONE PROPIONATE 50 MCG/ACT nasal spray SPRAY 1 SPRAY INTO EACH NOSTRIL EVERY DAY (Patient not taking: Reported on 07/26/2024) 32 mL 5 No current facility-administered medications for this visit. Review of patient's allergies indicates: No Known Allergies Immunization History Administered Date(s) Administered Dtap 10/14/2011 Dtap (Generic) 10/14/2011 Influenza Adult (Generic) 07/19/2019, 08/08/2019, 06/28/2020, 09/08/2021, 07/06/2022 [facility] (U*tique) COVID-19 AD26 VACCINE 0.5 ML IM SUSP 11/01/2020 [facility] COVID-19 (ORIGINAL FORMULATION, PURPLE CAP) mRNA, LNP-S, PF, 30 MCG/0.3 ML DOSE 09/08/2021 [facility] COVID-19 BIVALENT (12+) mRNA, LNP-S, PF, 30 MCG/0.3 ML DOSE 08/02/2022 Review of Systems Constitutional: Negative for chills, fever and weight loss. HENT: Negative for ear pain, hearing loss and nosebleeds. Eyes: Negative for blurred vision, double vision and redness. Respiratory: Negative for cough, hemoptysis, sputum production, shortness of breath and wheezing. Cardiovascular: Negative for chest pain, palpitations, orthopnea, leg swelling and PND. Gastrointestinal: Negative for heartburn, nausea and vomiting. Genitourinary: Negative for dysuria, frequency and urgency. Musculoskeletal: Negative for myalgias. Skin: Negative for rash. Neurological: Negative for dizziness, tingling and headaches. Endo/Heme/Allergies: Does not bruise/bleed easily. Psychiatric/Behavioral: Negative for depression and suicidal ideas. Physical Exam Filed Vitals: 07/26/24 0957 BP: 121/67 Pulse: 83 Resp: 18 Temp: 97.9 degreeF (36.6 degreeC) TempSrc: Temporal SpO2: 98% Weight: 79.8 kg (176 lb) Height: 1.727 m (5' 8) Body mass index is 26.76 kg/mA?. Physical Exam: General: Alert, pleasant, in NAD Neuro: Alert, appropriate Psych: Affect normal Head: NC, AT EENT: No Sinus tenderness to palpation, mallampati 3 Neck: Supple Lymph: No appreciable cervical lymphadenopathy Respiratory: No crackles or wheezing. Cardiovascular: s1,s2, rrr, no audible murmur GI: non-distended, bs+ Musc: Bilateral wrist ROM wnl Ext: no edema, no clubbing Skin: No visible rashes, No visible tattoos PFTs: 02/15/2018 complete PFT with and without bronchodilator Prebronchodilator FEV1 2.24 L, 70%. FVC 3.58 L, 89%. FEV1/FVC 62%. Postbronchodilator FEV1 2.23 L, 70%. FVC 3.41 L, 84%. FEV1/FVC 65%. Total lung capacity 6.12 L, 109%. RV 2.44 L, 125%. ERV 0.47 L, 37%. Unadjusted DLCO 74% predicted. 02/18/2017 complete PFT with and without bronchodilator Prebronchodilator FEV1 1.95 L, 61%. FVC 3.36 L, 83%. FEV1/FVC 58%. Postbronchodilator FEV1 2.07 L, 64%. FVC 3.38 L, 83%. FEV1/FVC 61%. TLC 4.93 L, 85%. RV 1.58 L, 76%. 06/10/2020 Prebronchodilator FEV1 2.03 L, 65%. FVC 3.52 L, 89%. FEV1/FVC ratio 58%. Postbronchodilator FEV1 2.13 L, 68%. FVC 3.60 L, 91%. FEV1/FVC ratio 59%. TLC 5.87 L, 102%. RV 2.35 L, 111%. Unadjusted DLCO 53%. 10/22/2022 Prebronchodilator FEV1 2.14 L, 73% predicted. FVC 3.54 L, 95% predicted. FEV1/FVC ratio 60%. Postbronchodilator FEV1 2.32 L, 79% predicted. FVC 3.74 L, 100% predicted. FEV1/FVC ratio 62%. TLC 5.73 L, 97% predicted. RV 2.14 L, 113% predicted. DLCO 61% CT Chest 01/24/[address] chest Images not available for review. Per the report focal infiltrate at the left base anterior laterally. Dependent atelectasis at the bases. Mild emphysematous changes. No adenopathy in the mediastinum or hilum. 06/13/2020 CT at [facility] imaging Images personally reviewed. Emphysematous changes bilaterally. No suspicious nodules or masses. 06/12/2022 low-dose CT for lung cancer screening Images personally reviewed. Similar emphysematous changes. No suspicious nodules. 07/11/2024 Imaging reviewed. No concerning lung nodules. Pertinent Labs Reviewed Assessment 1. COPD Gold 2B 2. Tobacco use history 3. Daytime fatigue 4. Hypothyroidism Plan -Continue Anoro Ellipta 62.5/25 mcg 1 puff daily -Continue PRN albuterol; refilled today -Continue Flonase daily - Repeat lung cancer screening June 2025 - Update complete PFT with and without bronchodilator - 6-minute walk test Return in about 1 year (around 07/26/2025). Mitchell Reyes MD Signed by: MITCHELL REYES 07/26/2024 10:11 AM ERVIN Dia Attn: Accounting,[address] [place], [address], [facility] 07/26/2024 11:14:50 Procedures Surgical History Date Name Laterality Status Provider Name and Address Organization Details Recorded Time 7 Knee Surgery completed Brandi Blackwell [place] - [facility] 01/27/2018 10:28:04 8 Removal of thyroid completed Brii Juares [place] - [facility] 03/31/2017 09:23:29 Imaging Results None recorded. Procedure Notes None recorded. Medical Equipment None Reported. Allergies No known drug allergies Medications Name Sig Start Date Stop Date Status Note LastModified by Organization Details LastModified Time amoxicill in 500 mg capsule 08/12 completed Not Available Not Available Not Available bupropion HCl SR 150 mg tablet,12 hr sustained -release TAKE 1 TABLET BY MOUTH TWICE DAILY 05/15 completed Not Available Not Available Not Available azelastin e 0.05 % eye drops INSTILL 2 DROPS TWICE A DAY BY OPHTHALM IC ROUTE NEEDED FOR 30 DAYS. 04/06 completed Not Available Not Available Not Available ketoconaz ole 2 % shampoo APPLY TO THE AFFECTED AREA(S), LATHER, LEAVE IN PLACE FOR 5 MINUTES, AND THEN RINSE OFF WITH WATER BY TOPICAL ROUTE ONCE DAILY 07/13 completed Not Available Not Available Not Available trazodone 50 mg tablet Take 0.5 tablets every day by oral route. 05/15 completed Not Available Not Available Not Available ketoconaz ole 200 mg tablet TAKE 1 TABLET BY MOUTH EVERY DAY 07/13 completed Not Available Not Available Not Available azithromy meera 250 mg tablet 10/05 completed Not Available Not Available Not Available fluconazo le 150 mg tablet TAKE 1 TABLET BY MOUTH EVERY DAY 10/04 completed Not Available Not Available Not Available benzonata te 200 mg capsule TAKE 1 CAPSULE BY MOUTH THREE TIMES DAILY NEEDED FOR COUGH 07/06 completed Not Available Not Available Not Available hydrocodo ne 5 mg-acetam inophen 325 mg tablet 05/14 completed Not Available Not Available Not Available Claritin 10 mg tablet Take 1 tablet every day by oral route. 05/14 completed Not Available Not Available Not Available Nicoderm CQ 21 mg/24 hr daily transderm al patch Apply 1 patch every day by transder mal route. 10/05 completed Not Available Not Available Not Available ondansetr on HCl 4 mg tablet TAKE 1 TABLET BY MOUTH EVERY 8 HOURS NEEDED FOR NAUSEA OR VOMITING 04/06 completed Not Available Not Available Not Available prednison e 20 mg tablet TAKE 2 TABLETS BY MOUTH EVERY DAY FOR 5 DAYS 12/31 completed Not Available Not Available Not Available dextroamp hetamine- amphetami ne 10 mg tablet TAKE 1 TABLET BY MOUTH TWICE DAILY NEEDED 05/13 completed Not Available Not Available Not Available clobetaso l 0.05 % topical cream APPLY A THIN LAYER TO THE AFFECTED AREA(S) BY TOPICAL ROUTE 2 TIMES PER DAY up to 2 weeks at a time. active Not Available Not Available No t Available topiramat e 25 mg tablet TK 1 T PO D IN THE TONY 12/31 completed Not Available Not Available Not Available phentermi ne 37.5 mg tablet TK 1 T PO QD 12/31 completed Not Available Not Available Not Available tramadol 50 mg tablet 05/14 completed Not Available Not Available Not Available triamcino lone acetonide 0.1 % topical cream APPLY A THIN LAYER TO THE AFFECTED AREA OF CHEST TWICE DAILY X 2 WEEKS THEN TAKE A 2 WEEK BREAK THEN REPEAT NEEDED active Not Available Not Available No t Available levothyro xine 75 mcg tablet TAKE 1 TABLET BY MOUTH EVERY DAY 12/25 completed Not Available Not Available Not Available amoxicill in 875 mg tablet 01/27 completed Not Available Not Available Not Available dextroamp hetamine- amphetami ne ER 20 mg 24hr capsule,e xtend release Take 1 capsule every day by oral route in the morning. 2024 active Not Available Not Available Not Avai lable Proctozon e-HC 2.5 % topical cream perineal applicato r 06/30 completed Not Available Not Available Not Available levothyro xine 50 mcg tablet TAKE 1 TABLET BY MOUTH DAILY 2024 active Not Available Not Available Not Avai lable hydrocodo ne 7.5 mg-acetam inophen 325 mg tablet 05/14 completed Not Available Not Available Not Available cephalexi n 500 mg capsule TAKE 1 CAPSULE BY MOUTH EVERY 6 HOURS FOR 7 DAYS 05/13 completed Not Available Not Available Not Available oseltamiv ir 75 mg capsule 05/15 completed Not Available Not Available Not Available Advair Diskus 250 mcg-50 mcg/dose powder for inhalatio n Inhale 1 puff twice a day by inhalati on route. 12/10 completed Not Available Not Available Not Available sertralin e 25 mg tablet 06/30 completed Not Available Not Available Not Available omeprazol e 20 mg capsule,d elayed release Take 1 capsule every day by oral route. 05/15 completed Not Available Not Available Not Available Banophen 25 mg capsule TAKE 2 CAPSULE 3 TIMES PER DAY FOR 5 DAYS 12/31 completed Not Available Not Available Not Available monteluka st 10 mg tablet 09/15 completed Not Available Not Available Not Available codeine 10 mg-guaife nesin 100 mg/5 mL oral liquid TAKE 10 MILLILIT ERS BY MOUTH EVERY 4 HOURS NEEDED 10/04 completed Not Available Not Available Not Available mupirocin 2 % topical ointment 05/15 completed Not Available Not Available Not Available clobetaso l 0.05 % topical ointment APPLY TOPICALL Y TO PSORIASI S ON ELBOWS TWICE DAILY X 2 WEEKS active Not Available Not Available No t Available ibuprofen 600 mg tablet 02/08 completed Not Available Not Available Not Available zolpidem 10 mg tablet TAKE 1/2 TABLET BY MOUTH DAILY NEEDED AT BEDTIME FOR SLEEP 05/15 completed Not Available Not Available Not Available methylpre dnisolone 4 mg tablets in a dose pack FOLLOW PACKAGE DIRECTIO NS 12/23 completed Not Available Not Available Not Available albuterol sulfate HFA 90 mcg/actua tion aerosol inhaler INHALE 2 PUFFS BY MOUTH EVERY 4 HOURS NEEDED FOR WHEEZE OR FOR SHORTNES S OF BREATH active Not Available Not Available No t Available ketoconaz ole 2 % topical cream 01/06 completed Not Available Not Available Not Available cefdinir 300 mg capsule TAKE 1 CAPSULE BY MOUTH EVERY 12 HOURS FOR 10 DAYS 10/04 completed Not Available Not Available Not Available fluticaso ne propionat e 50 mcg/actua tion nasal spray,tariq pension SPRAY 1 SPRAY BY NASAL ROUTE EVERY DAY 04/06 completed Not Available Not Available Not Available clotrimaz ole 1 % topical cream APPLY TO THE AFFECTED AND SURROUND ING AREAS TWICE DAILY IN THE MORNING AND EVENING FOR 14 DAYS 04/06 completed Not Available Not Available Not Available amoxicill in 875 mg-potass ium clavulana te 125 mg tablet 05/15 completed Not Available Not Available Not Available Bactrim DS 800 mg-160 mg tablet Take 1 tab twice daily with food x 3 days 02/28 completed RxNorm: [id number] llow Substitu tion: True Not Available Not Available Not Available rosuvasta tin 10 mg tablet TAKE 1 TABLET BY MOUTH DAILY AT BEDTIME 2024 active Not Available Not Available Not Avai lable omeprazol e 05/15 completed Not Available Not Available Not Available Ambien 1/2 tablet prn 05/15 completed Not Available Not Available Not Available bimatopro st 0.03 % drops with applicato r, eyelash base Apply 1 drop every day by topical route at bedtime. active Not Available Not Available No t Available LEAKAGE TESTER Thyroid 30 mg tablet TAKE 1 TABLET BY MOUTH EVERY DAY 12/06 completed Not Available Not Available Not Available Linzess 145 mcg capsule TK ONE C PO QD 12/31 completed Not Available Not Available Not Available Anoro Ellipta 62.5 mcg-25 mcg/actua tion powder for inhalatio n TAKE 1 PUFF BY MOUTH EVERY DAY active Not Available Not Available No t Available Retin-A Micro Pump 0.08 % topical gel active Not Available Not Available Not Available Spiriva Respimat 1.25 mcg/actua tion solution for inhalatio n Inhale 2 puffs every day by inhalati on route. 12/10 completed Not Available Not Available Not Available Steph Autoinjec tor 80 mg/mL subcutane ous 06/27 completed Not Available Not Available Not Available bupropion HCl 150 mg tablet,12 hr sustained -release( smoking deterrent ) 05/15 completed second appeal form [facility] Not Available Not Available Not Available Retin-A Micro Pump 0.06 % topical gel 05/15 completed Not Available Not Available Not Available Fluzone Quad (PF) 60 mcg (15 mcg x 4)/0.5 mL IM syringe 09/15 completed Not Available Not Available Not Available ID NOW COVID-19 Test Kit TEST DIRECTED TODAY 08/12 completed Not Available Not Available Not Available BinaxNOW COVID-19 Ag Self Test kit TEST DIRECTED TODAY 12/23 completed Not Available Not Available Not Available Skyrizi 150 mg/mL subcutane ous pen injector 12/06 completed Not Available Not Available Not Available Vitals Date Recorded Body height Body temperature Oxygen saturation Oxygen saturation in Arterial blood by Pulse oximetry Heart rate Body mass index (BMI) Body weight Systolic And Diastolic Provider Name and Address Organization Details Last Updated DateTime 5 172.72 cm 97 [degF] 100 % 100 % 88 /min 26.3 kg/m2 26311.4 8 g 111/75 mm[Hg] Earnestine Badillo [place] - [facility] 5 12:18:31 Date Recorded Body height Body mass index (BMI) Body weight Oxygen saturation Oxygen saturation in Arterial blood by Pulse oximetry Heart rate Body temperature Systolic And Diastolic Provider Name and Address Organization Details Last Updated DateTime 4 172.72 cm 26.8 kg/m2 01733.2 6 g 97 % 97 % 83 /min 97.5 [degF] 124/81 mm[Hg] Samantha Moscoso MA [facility] 4 10:22:54 Date Recorded Body height Body mass index (BMI) Body weight Oxygen saturation Oxygen saturation in Arterial blood by Pulse oximetry Heart rate Body temperature Systolic And Diastolic Provider Name and Address Organization Details Last Updated DateTime 5 172.72 cm 25.6 kg/m2 38224.3 2 g 95 % 95 % 96 /min 98 [degF] 131/80 mm[Hg] Dsetiny Peres MA [facility] 5 14:32:02 Date Recorded Body height Body mass index (BMI) Body weight Body temperature Oxygen saturation Oxygen saturation in Arterial blood by Pulse oximetry Heart rate Systolic And Diastolic Provider Name and Address Organization Details Last Updated DateTime 5 172.72 cm 25.8 kg/m2 58008.7 g 97.5 [degF] 95 % 95 % 73 /min 117/77 mm[Hg] Екатерина Muller MA [facility] 5 14:01:07 Date Recorded Body height Body mass index (BMI) Body weight Oxygen saturation Oxygen saturation in Arterial blood by Pulse oximetry Heart rate Body temperature Systolic And Diastolic Provider Name and Address Organization Details Last Updated DateTime 4 172.72 cm 26.8 kg/m2 29869.2 6 g 97 % 97 % 87 /min 97.8 [degF] 114/73 mm[Hg] Samantha Moscoso MA [facility] 4 10:37:06 Social History Question Answer Notes LastModified by Organizat ion Details LastModified Time Tobacco Smoking Status Former Smoker Claudia degroot [facility] 10/05/2016 13:06:48 Do You Have An Advance Directive? No Information n ot available 08/12/2021 Are You Blind Or Do You Have Difficulty Seeing? No Information n ot available 08/12/2021 What Is Your Level Of Caffeine Consumption? Moderate Information not available 08/12/2021 In The 14 Days Before Symptom Onset, Have You Had Close Contact With A Laboratory-confirm ed COVID-19 While That Case Was Ill? No Information n ot available 08/12/2021 In The 14 Days Before Symptom Onset, Have You Had Close Contact With A Person Who Is Under Investigation For COVID-19 While That Person Was Ill? No Information not available 08/12/2021 Have You Been To An Area Known To Be High Risk For COVID-19? No Information not available 08/12/2021 Are You Deaf Or Do You Have Serious Difficulty Hearing? No Information not available 08/12/2021 What Type Of Diet Are You Following? REGULAR Information n ot available 08/12/2021 Are There Any Guns Present In Your Home? No Information not available 08/12/2021 What Was The Date Of Your Most Recent Tobacco Screening? 06/27/2025 [email or web address] Information not available 06/27/2025 How Many Children Do You Have? 4 Information not available 08/12/2021 What Is Your Relationship Status? Information not available 08/12/2021 Do You Use Your Seat Belt Or Car Seat Routinely? Yes Information not available 08/12/2021 Do You Have Smoke And Carbon Monoxide Detectors In Your Home? Yes Information not available 08/12/2021 Are You Passively Exposed To Smoke? No Information no t available 08/12/2021 Do You Use Sunscreen Routinely? Yes Information not available 08/12/2021 Has Tobacco Cessation Counseling Been Provided? No [email or web address] Information not available 07/06/2022 Sex: Female Functional Status Question Answer Note LastModified by Organizat ion Details LastModified Time Do you use any illicit or recreational drugs? No Information not available 08/12/2021 What is your level of alcohol consumption? Occasional Information not available 08/12/2021 Are you currently employed? Yes Information not available 08/12/2021 Are you able to care for yourself independently? Yes Information not available 08/12/2021 What is your exercise level? Occasional Information not available 08/12/2021 Mental Status Question Answer Note LastModified by Organization D etails LastModified Time Do you feel stressed (tense, restless, nervous, or anxious, or unable to sleep at night)? [id number] Information not available 08/12/2021 Family History Relationship Description Onset Age of this Age Resolved Age Notes LastModified by Organization Details LastModified Time Brother Harmful pattern of use of alcohol [email or web address] Not available 01/2017 13:04:03 Brother Coronary arterioscler osis [email or web address] Not available 01/2017 13:05:13 Brother Depressive disorder [email or web address] Not available 01/2017 13:05:40 Brother Diabetes mellitus [email or web address] Not available 01/2017 13:05:51 Brother Hypertensive disorder [email or web address] Not available 01/2017 13:06:32 Sister Malignant neoplasm of breast [email or web address] Not available 01/2017 13:04:57 Sister Hypertensive disorder [email or web address] Not available 01/2017 13:06:32 Father Aortic aneurysm [email or web address] Not available 09/2016 09:23:46 Father Malignant neoplasm of lung [email or web address] Not available 09/2016 09:23:55 Medical History Condition Response Coronary Artery Disease N Other N Atrial Fibrillation N High Blood Pressure N Kidney or Bladder Problems N Thyroid Problems Y GI Problems N Depression N COPD N Blood Clots N Skin Problems N Anemia N Heart Attack (AR) N Anxiety Disorder N Diabetes N Muscle, Joint, or Bone Problems N Seizures/Epilepsy N Acid Reflux (GERD) N Cancer N Stroke N Asthma N Allergies N High Cholesterol N Hepatitis N Liver Disease N Headaches N Osteoporosis N Heart Failure N Gynecological History Statement/Question Response Menses Monthly N If Post Menopausal, Age at Menopause 41 Obstetrics History GPAL:G 4 P 4 0 0 4 Type Value Full Term 4 Living 4 Total 4 Immunizations Vaccine Type Date Status Note Provider Ayan roman and Address Organization Details Recorded Time Influenza, split virus, quadrivalent, preservative 9 completed ERVIN Dia Attn: Accounting,[address] [facility], [place], [address], [facility] 10/04/2023 11:02:56 COVID-19 vaccine, vector-nr, rS-ChAdOx1, PF, 0.5 mL 1 completed ERVIN Dia Attn: Accounting,[address] [facility], [place], [place], [address] [place] [address], [place] [facility] 10/04/2023 11:03:14 COVID-19, mRNA, LNP-S, PF, 30 mcg/0.3 mL dose 2 completed Екатерина Bowers PA Attn: Accounting,[address] [facility], [place], [place], [address] [place] [address], [place] [facility] 10/04/2023 11:03:14 Influenza, split virus, quadrivalent, PF 0 completed ERVIN Dia Attn: Accounting,[address] [facility], [place], [place], [address] [place] [address], [place] [facility] 10/04/2023 11:02:56 zoster recombinant 2 completed ERVIN Dia Attn: Accounting,[address] [facility], [place], [place], [address] [place] [address], [place] [facility] 10/04/2023 11:03:14 COVID-19 vaccine, vector-nr, rS-Ad26, PF, 0.5 mL 1 completed ERVIN Dia Attn: Accounting,[address] [facility], [place], [place], [address] [place] [address], [place] [facility] 10/04/2023 11:03:14 COVID-19, mRNA, LNP-S, bivalent, PF, 30 mcg/0.3 mL dose 2 completed Екатерина Bowers PA Attn: Accounting,[address] [facility], [place], [place], [address] [place] [address], [place] [facility] 10/04/2023 11:03:14 Influenza, split virus, quadrivalent, PF 2 completed Екатерина Bowers PA Attn: Accounting,[address] [place], [place], [address] [place] [address], [place] [facility] 10/04/2023 11:03:14 Influenza, split virus, quadrivalent, PF 9 completed ERVIN Dia Attn: Accounting,[address] [place], [address], [place] [facility] 10/04/2023 11:03:14 Influenza, split virus, quadrivalent, preservative 2 completed ERVIN Dia Attn: Accounting,[address] [place], [address], [place] [facility] 07/06/2022 22:47:51 DTaP 2 completed ERVIN Dia Attn: Accounting,[address] [facility], [place], [address], [place] [facility] 10/04/2023 11:02:56 Influenza, split virus, quadrivalent, preservative 4 completed ERVIN Dia Attn: Accounting,[address] [place], [address], [place] [facility] 10/04/2023 20:14:37 Tdap 4 completed ERVIN Dia Attn: Accounting,[address] [place], [address], [place] [facility] 10/04/2023 20:14:37 Past Encounters Encounter ID Performer Location Encounter Start Date Encounter Closed Date Diagnosis/Indication Diagnosis SNOMED-CT Code Diagnosis ICD10 Code Diagnosis IMO Codes Diagnosis Note [id number] Peyton Chapa MD [facility] [address] [place] [address] 10/05/2016 10:56:54 10/06/2016 09:02:28 Muscle pain 60474991 M79.1 Ex-smoker 7920568 Z87.89 1 History of hyperthyroidism 892903048 Z86.39 [id number] Augusto Guzmán MD [facility] [address] [place] [address] 02/08/2017 14:50:23 02/08/2017 15:47:17 Dyspnea on exertion 80172872 R06.09 [id number] Augusto Guzmán MD [facility] [address] [place] [address] 03/03/2017 10:21:15 03/03/2017 15:13:07 Chronic obstructive pulmonary disease 32403063 J44.9 Knee pain 25202772 M25.5 61 Unstable knee 262855306 M25.191 [id number] Peyton Chapa MD [facility] [address] [place] [address] 05/14/2017 10:49:50 05/17/2017 09:21:28 Insomnia 735774852 G47.00 will see what menopausal status shows, since she is interested in short term HRT Reduced libido 3240590 R 68.82 Chronic ob structive pulmonary disease 71616952 J44.9 will call for refills if effective. PFTs show no response to bronchodil ators but moderate disease Hyperlipid emia screening 419849242 Z13.285 [id number] Augusto Guzmán MD [facility] [address] [place] [address] 06/30/2017 10:54:57 06/30/2017 14:53:07 Depressive disorder 76854615 F32.9 Chronic ob structive pulmonary disease 21077296 J44.9 Persistent insomnia 1919 88007 G47.09 [id number] Augusto Guzmán MD [facility] [address] [place] [address] 12/10/2017 10:49:46 12/10/2017 15:34:01 Injury of abdomen 711219588 S39.81XA anticipato ry guidance, likely soft tissue injury. If any near syncope or increasing abd pain, blood in stool or urine, go to ER Epigastric pain 81485796 R10.13 otc H2 liz and avoid NSAIDs for now [id number] Katty Galdamez MD [facility] [address] [place] [address] 01/27/2018 10:06:59 01/28/2018 12:01:40 Adult health examination 319593872 Z00.00 Hyperlipidemia 68450958 E78.5 Gastroesop hageal reflux disease 434144619 K21.9 Insomnia 942108111 G47.0 0 [id number] Peyton Chapa MD [facility] [address] [place] [address] 05/15/2019 11:01:28 05/15/2019 12:43:02 Hypothyroidism 52447663 E03.9 Hyperlipidemia 66727777 E78.5 HIV screening 301367917 Z11.4 [id number] Peyton Chapa MD [facility] [address] [place] [address] 09/15/2019 10:05:45 09/15/2019 14:28:53 Hypothyroidism 25128421 E03.9 Hyperlipidemia 48583595 E78.5 will await lab on her response to statin therapy and her thyroid dose Adult heal th examination 082034291 Z00.00 continue healthy eating and regular exercise and continued not smoking. UTD on pap, mammogram and colon cancer screening [id number] Peyton Chapa MD [facility] [address] [place] [address] 12/31/2020 11:58:02 01/01/2021 08:26:20 Increased frequency of urination 136871992 R35.0 will await culture to determine if UTI vs overactive bladder Adult heal th examination 917397255 Z00.00 continue healthy eating and regular exercise and continued not smoking. UTD on pap, mammogram and colon cancer screening Hyperlipidemia 52342761 E78.5 Hypothyroidism 32128733 E03.9 will increase dose due to underactiv e symptoms complaints and rech TSH and T4 in 2-3 months Chronic ob structive pulmonary disease 87951285 J44.[address] 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 I encourage only to take on class/home work days. Call with any SEs or ineffectiv ity. She has had ADD entire life, both of her children do too, she has never taken medication , nor wants to correction. [id number] Peyton Chapa MD [facility] [address] [place] [address] 03/18/2021 09:09:21 03/18/2021 13:28:47 Attention deficit hyperactivity disorder, predominantly inattentive type 89080995 F90.0 taking adderall very rarely prn studying, used #30 in 3 months. Will refill. Hypothyroidism 96048386 E03.9 We increased her dose 2 months ago to 75mcg, she has order at [facility] to have levels drawn and she will go in the next 2 weeks so we can safely refill higher dose [id number] Peyton Chapa MD [facility] [address] [place] [address] 08/12/2021 09:04:12 08/12/2021 13:13:25 Adult attention deficit hyperactivity disorder 682232563 F90.9 Rarely takes but it is VERY helpful, filled #30 in February and has not filled since. No adverse effects. [id number] Peyton Chapa MD [facility] [address] [place] [address] 12/23/2021 11:28:43 12/23/2021 13:20:47 Overweight 789741822 E66.3 Adult atte ntion deficit hyperactivity disorder [id number] F90.9 Rarely takes but it is VERY helpful, filled #30 in July and has not filled since. No adverse effects. Hyperlipidemia 12623730 E78.5 Hypothyroidism 36981903 E03.9 Chronic ob structive pulmonary disease 60830425 J44.[address] Mcgee Screening for malignant neoplasm of cervix 009118679 Z12.4 Former hea vy tobacco smoker [id number] 08066 Z87.891 gets LDCT scan through Dr. Reyes. [id number] Peyton Chapa MD [facility] [address] [place] [address] 04/15/2022 09:43:08 04/16/2022 11:20:02 Adult attention deficit hyperactivity disorder 616437150 F90.9 Rarely takes but it is VERY helpful, filled #30 in November and has not filled since. Takes it about 3 days a week on average. No adverse effects other than some difficulty initiating sleep on the days she takes it, but does not want to lower the dose [id number] Peyton Chapa MD [facility] [address] [facility] [address] [place] [address] 07/06/2022 10:18:59 07/07/2022 12:13:45 Hypothyroidism 32442377 E03.9 decreased dose in November, due for repeat thyroid lab. Hyperlipidemia 54875634 E78.5 lipids acceptable in November, but fasting today so will run lipid. Adult atte ntion deficit hyperactivity disorder 791343098 F90.9 Rarely takes but it is VERY helpful, filled #30 April 15 and has not filled since. Takes it about 3 days a week on average. No adverse effects other than some difficulty initiating sleep on the days she takes it, but does not want to lower the dose Hypotricho sis of eyelid 28275824 H02.729 use minimal amount 1 drop to upper lids only as needed. Screening for malignant neoplasm of breast 404729962 Z12.39 last mamm on file August 2020, printed order, will call [facility] to schedule Ex-smoker 4152914 Z87.89 1 continue with lung cancer screenings annually. Administra tion of influenza vaccine 91343707 Z23 [id number] ERVIN Dia [facility] [address] [facility] [address] [place] [address] 01/06/2023 11:23:51 01/07/2023 11:44:54 Overweight 994332672 E66.3 Attention deficit hyperactivity disorder, predominantly inattentive type 77925335 F90.0 Rarely takes but it is VERY helpful, filled #30 07/06 ( more than 3 months ago) filled regluar release in November due to supply issues. Takes it about 3 days a week on average. No adverse effects other than some difficulty initiating sleep on the days she takes it, but does not want to lower the dose. Taking it more regularly now b/c does feel MUCH better. Will f/u 3 months. Allergic conjunctivitis of bilateral eyes [id number] 79209 H10.13 continue antihistam ine of choice otc and will sent RX eye drop [id number] Marcin Coyle MD [facility] [address] [place] [address] 05/13/2023 13:55:46 05/16/2023 23:08:48 Attention deficit hyperactivity disorder, predominantly inattentive type 72022006 F90.0 Rarely takes but it is VERY helpful, filled #30 04/05/23. Takes it about 6-7 a week on average. No adverse effects other than some difficulty initiating sleep on the days she takes it, but does not want to lower the dose. Taking it more regularly now b/c does feel MUCH better. Will f/u every [facility] for controlled substances . [id number] Marcin Coyle MD [facility] [address] [place] [address] 07/07/2023 11:11:48 07/15/2023 11:50:25 Chronic obstructive pulmonary disease 77333626 J44.[address] Mcgee. Horrible pM cough, hardly sleeping Acute sinusitis 87326928 J01.90 Get plenty of rest, push fluids, vaporizer, saline nasal spray, robitussin for cough prn, tylenol for ANGUIANO prn, call back if persistent colored nasal drainage or sputum, fevers, sinus pain, SOB. Attention deficit hyperactivity disorder, predominantly inattentive type 02960259 F90.0 Taking more regularly now and it is VERY helpful, filled #30 06/16. Takes it about 6-7 a week on average. No adverse effects other than some difficulty initiating sleep on the days she takes it, but does not want to lower the dose. Taking it more regularly now b/c does feel MUCH better. Will f/u every 3 [facility] . Plaque psoriasis 2447383 09 L40.0 no c/o significan t arthritis pain, some in fingers and wrists, will monitor [id number] Marcin Coyle MD [facility] [address] [place] [address] 10/04/2023 10:11:59 10/05/2023 10:53:16 Attention deficit hyperactivity disorder, predominantly inattentive type 68426781 F90.0 Taking more regularly now and it is VERY helpful, filled #30 09/22 Takes it about 6-7 a week on average. No adverse effects other than some difficulty initiating sleep on the days she takes it, but does not want to lower the dose. Taking it more regularly now b/c does feel MUCH better. Will f/u every 3 months in person per collaborat ing agreement for controlled substances . Hyperlipidemia 22141603 E78.5 over due for fasting lab Hypothyroidism 88691218 E03.9 due for repeat thyroid lab. Screening for malignant neoplasm of breast 444397636 Z12.39 last mamm on file August 2020, printed order, will call [facility] to schedule Screening for malignant neoplasm of cervix 839001782 Z12.4 [facility] Administra tion of diphtheria, pertussis, and tetanus vaccine 640877094 Z23 Administra tion of influenza vaccine 16617474 Z23 Overweight 725206771 E66 .3 Eating overall healthy and clean, no weight gain, stable. Plaque psoriasis 6416559 09 L40.0 with c/o some thumb joint arthritis pain, worse when she tends to eat more sugar. Chronic ob structive pulmonary disease 88970383 J44.[address] Reyes [id number] Marcin Coyle MD [facility] [address] [place] [address] 11/02/2023 13:42:07 11/04/2023 10:05:38 Hypotrichosis of eyelid 84056278 H02.729 use minimal amount 1 drop to upper lids only as needed. Pain of right wrist 3169 120321 35168 M25.531 will xray to make sure no occult fracture, wrist cock up splint given, if xray normal, will wear for 2 weeks, if no better, will refer to hand ortho Pain in right thumb 1076 047261 730456 M79.644 Allergic rhinitis 511817 04 J30.9 Plantar wa rt of right foot 0604611609 3477937 B07.0 shaved and cryotherap y, wound care discussed [id number] Marcin Coyle MD [facility] [address] [place] [address] 12/30/2023 10:28:45 12/30/2023 16:15:37 Adult attention deficit hyperactivity disorder 524140670 F90.9 Rarely takes but it is VERY helpful, filled #30 / ( more than 3 months ago) and has not filled since. Takes it about 3 days a week on average. No adverse effects other than some difficulty initiating sleep on the days she takes it, but does not want to lower the dose Plaque psoriasis 3550245 09 L40.0 with c/o some new worsening bilateral thumb pain at base of joints near wrist, was only right, now left and have been swelling. Very painful fine motor movements. This all started shortly after new psoriasis diagnosis as well. H/O thyroid disease s/p thyroidect frank. Will refer to dermatolog y for new psoriasis and hand joint effusion to consider biologic therapy discussion Hypothyroidism 01439891 E03.9 thyroid lab in September Hyperlipidemia 56763889 E78.5 labs UTD in September [id number] Marcin Coyle MD [facility] [address] [facility] [address] [place] [address] 03/30/2024 10:14:52 03/31/2024 09:53:12 Adult attention deficit hyperactivity disorder 733880073 F90.9 taking regularly now, filling monthly, f/u every 3 months. Will refill ADHD medication . F/U in office every 3 months in person and will call monthly as needed for refills, per Dr. Coyle' s approved protocol. Pityriasis versicolor 56 767517 B36.0 Seborrheic keratosis 394 072515 L82.1 right neck,treat ed and wound care discussed [id number] Katty Galdamez MD [facility] [address] [facility] [address] [place] [address] 07/13/2024 10:18:57 07/13/2024 16:23:04 Adult attention deficit hyperactivity disorder 262105037 F90.9 taking regularly now, filling monthly, f/u every 3 months. Will refill ADHD medication . F/U in office every 3 months in person and will call monthly as needed for refills, per Dr. Coyle' s approved protocol. Due for annual in 3 months. Coronary atherosclerosis 904895531 I25.84 Mild on LDCT in coronaries and thoracic aorta. We will repeat lab fasting in September, if LDL not at goal, will maximize statin, will start 81mg ASA daily. She is asymptomat ic and had a stress test within the past 5 years. BP remains great. Discussed at length heart healthy diet and continuing to stay active and maintain a healthy weight. [id number] Katty Galdamez MD [facility] [address] [facility] [address] [place] [address] 12/06/2024 11:57:27 12/07/2024 15:05:21 Adult health examination 309990894 Z00.00 continue healthy eating and regular exercise and continued not smoking. UTD on pap with [facility], mammogram due, and colon cancer screening 11/[address] Dr. Murguia repeat [address] lung cancer screening 07/23 with pulmonolog y. Discussed bone density Adult atte ntion deficit hyperactivity disorder 766936251 F90.9 taking regularly now, filling monthly, f/u every 3 months. Will refill ADHD medication . F/U in office every 3 months in person and will call monthly as needed for refills, per Dr. Galdamez's approved protocol. Hyperlipidemia 15326164 E78.5 annual labs UTD in September 2023, will draw today, only had a couple of pretzels. Hypothyroidism 03461901 E03.9 thyroid lab in September 2023 Screening for malignant neoplasm of breast 295553735 Z12.39 printed order, will call [facility] to schedule, last one 10/23, needs to reschedule Menopause present 143112 006 N95.1 has never had baseline, not sure about menopause, ablation at 42. Will try to get scheduled with her mammogram [id number] Katty Galdamez MD [facility] [address] [facility] [address] [place] [address] 04/06/2025 14:23:15 04/06/2025 15:42:28 Adult attention deficit hyperactivity disorder 121472073 F90.9 taking regularly now, filling monthly, f/u every 3 months. Will refill ADHD medication . F/U in office every 3 months in person and will call monthly as needed for refills, per Dr. Galdamez's approved protocol. [id number] Katty Galdamez MD [facility] [address] [facility] [address] [place] [address] 06/27/2025 13:39:58 06/27/2025 16:01:21 Adult attention deficit hyperactivity disorder 138438373 F90.9 taking regularly now, filling monthly, f/u every 3 months. Will refill ADHD medication . F/U in office every 3 months in person and will call monthly as needed for refills, per Dr. Galdamez's approved protocol. Requires i nfluenza virus vaccination 760831328 Z23 [id number] Health Concerns Section Related Observation LastModified by Organization Detai ls LastModified Time None Recorded Concern Status LastModified by Organization Details LastModified Time None Recorded Advance Directives Directive N: Payers Insurance Date Sequence Insurance Name Policy Number Policy Dang Covered Member ID Dang Member ID Guarantor Name 06/24/2025 1 [facility] (PPO) [id number] Uvaldo Greene [id number] Mona Greene 12/05/2024 1 [employer] [id number] Uvaldo Greene [id number] Mona Bre Greene 07/07/2023 [employer] [id number] Mona L Miryam Guillermoreymundo Díaz Miryam Notes Date Note Type Note Provider Name and Address Organization Details Recorded Time 4 text/html ADHDReported by PatientHPIFor organization, patient reportsgood organization. For appetite, patient reportsnormal appetite. For mood, patient reportsstable. For sleep, patient reportsgood. For friends, patient reportswell connected with peers. For family, patient reportsno new stressors. For self esteem, patient reportshigh. For attention, patient reportsable to focus. For hyperactivity, patient reportsis not hyperactive. For impulsivity, patient reportsis not impulsive. For tasking, patient reportsable to initiate tasks,able to complete tasks,able to move on to the next task, andmulti-tasking.lesion on left neck bothers her on occasion, itchy, not scabbyAlso recurrent whitish itchy diffuse rash on her abd, chest and bilateral upper arms, was given antifungal in the past for it. always worse in the summerROS as noted in the HPI Pt states that she is here for medication refill. pt states that she would also like to see if she can get a list of annual visits but the last one that i saw was from 12/2020 also requesting husbands annual visits as well. ERVIN Dia Attn: Accounting,[address] [facility], [place], [address], [facility] 03/30/2024 20:56:47 4 text/html ADHD PsychiatricReported by PatientADHDFor patient endorses, patient reportshas difficulty organizing tasks and activitiesandeasily distracted by extraneous stimulibut reportsno symptoms of impulsivityandno symptoms of hyperactivity(controlled with medication but some of the above does apply). For onset, patient reportsadolescense. For context, patient reportsincreased productivity at work,improved school performance,able to set limits with obligations,no dysfunction in family, andno financial problems(pt states she is add not adhd and also states that she is here for medication refill. pt states that add is controlled with medication).no complaints, doing wellDid have her LDCT scan and atherosclerosis mentionedROS as noted in the HPI ERVIN Dia Attn: Accounting,[address] [facility], [place], [address], [facility] 07/13/2024 11:11:00 5 text/html ROS as noted in the HPI pt here for annual. No overall concerns today, no complaints. ERVIN Dia Attn: Accounting,[address] [facility], [place], [address], [facility] 12/07/2024 14:23:52 5 text/html ADHDReported by PatientHPIFor organization, patient reportsgood organization. For appetite, patient reportsnormal appetiteandno binge eating. For mood, patient reportsstable. For sleep, patient reportsgood. For friends, patient reportswell connected with peers. For family, patient reportsno new stressors. For self esteem, patient reportshigh. For attention, patient reportsable to focus. For hyperactivity, patient reportsis not hyperactive. For impulsivity, patient reportsis not impulsive. For tasking, patient reportsable to initiate tasks,able to complete tasks,able to move on to the next task, andmulti-tasking.ROS as noted in the HPI ERVIN Dia Attn: Accounting,[address] [facility], [place], [address], [facility] 04/06/2025 14:45:51 5 text/html ADHDReported by PatientHPIFor school performance, patient reportsno issueandchild is learning. For school support, patient reportswell supportedandteachers are very involved. For organization, patient reportsgood organization(better now that pt has medication). For appetite, patient reportsnormal appetiteandno binge eating. For mood, patient reportsstable. For sleep, patient reportsgoodandadequate sleep, not tired at school. For friends, patient reportswell connected with peers. For family, patient reportsno new stressors. For attention, patient reportsable to focus. For hyperactivity, patient reportsis not hyperactive. For impulsivity, patient reportsis not impulsive. For tasking, patient reportsable to initiate tasks,able to complete tasks,able to move on to the next task, andmulti-tasking(better now taking medication.). For self esteem, (good).ROS as noted in the HPI Pt. states that she is doing well on her medication. Pt. here for medication refill. ERVIN Dia Attn: Accounting,[address] [facility], [place], [address], [facility] 06/27/2025 14:48:35 OBGyn Episode No OBEpisode recorded.
--- OUTSIDE RECORDS SUMMARY | 2025-07-07 10:04 | XMS_ITS | Encounter Summary ---
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 Name Role Phone Stephanie Guzmán MD Primary Care Provider + Екатерина Bowers Primary Care Provider [phone] Encounter Details Date Type Department Care Team (Latest Contact Info) Description 03/24/2017 Orders Only [facility] CLINCONV ProviderYumiko MD [address] [place] [id number] Social History Tobacco Use Types Packs/Day Years Used Date Smoking Tobacco: Never Assessed Comments Unknown Sex and Gender Information Value Date Recorded Sex Assigned at Not on file Legal Sex Female 6:43 PM [employer] Gender Identity Not on file Sexual Orientation Not on file documented as of this encounter Plan of Treatment Not on file documented as of this encounter Procedures Procedure Name Priority Date/Time Associated Diagnosis Comments PROCEDURE - RESULT 03/24/2017 12 :00 AM CDT documented in this encounter Results * PROCEDURE - RESULT (03/24/2017 12:00 AM CDT) Narrative 03/24/2017 12:00 AM CDT Ordered by an unspecified provider. 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
--- OUTSIDE RECORDS SUMMARY | 2025-07-07 10:04 | XMS_ITS | Clinical Summary ---
Author Organization [facility] Address Formerly [facility] [place] [address] Care Team Providers Care Melter Helper Name Role Phone Renu Mckeon MD Unavailable [phone] Parent, Екатерина MUELLER Primary Care Provider [phone] Allergies No known active allergies Medications Multiple Vitamins-Mineral s (ALIVE ONCE DAILY WOMENS) Tab Take 1 tablet by mouth daily. 7 Active aspirin 325 MG tablet Active rosuvastatin 10 MG tablet Take 1 tablet (10 mg total) by mouth nightly at bedtime. 2 8 Active levothyroxine 50 MCG tablet Take 1 tablet (50 mcg total) by mouth daily. 0 Active FLUTICASONE PROPIONATE 50 MCG/ACT nasal sprayIndications :Environmental and seasonal allergies,Allerg ic rhinitis, unspecified seasonality, unspecified trigger SPRAY 1 SPRAY INTO EACH NOSTRIL EVERY DAY 32 mL 5 1 Active Additional Information Patient not taking.Reported on 07/26/2024 fluticasone propionate (FLONASE) 50 MCG/ACT nasal sprayIndications :Allergic rhinitis, unspecified seasonality, unspecified trigger SPRAY 1 SPRAY BY NASAL ROUTE EVERY DAY 48 mL 1 3 Active ADDERALL XR 20 MG 24 hr capsule one po daily prn as directed 3 Active ANORO ELLIPTA 62.5-25 MCG/ACT inhalerIndicatio ns:Centrilobular emphysema (CMS/HCC HHS/HCC) USE 1 INHALATION BY MOUTH INTO THE LUNGS DAILY 180 each 3 4 Active albuterol sulfate HFA 108 (90 Base) MCG/ACT inhalerIndicatio ns:Centrilobular emphysema ([facility]/HCC [facility]) INHALE 2 PUFFS INTO THE LUNGS EVERY 4 HOURS NEEDED FOR WHEEZING OR SHORTNESS OF BREATH 18 g 11 4 Active Active Problems Problem Noted Date Diagnosed Date Family history of lung cancer 01/04/2019 Allergic rhinitis, unspecifi ed seasonality, unspecified trigger 01/04/2019 Other nonspecific abnormal finding of lung field 01/04/2019 Environmental and seasonal allergies 01/04/2019 Abnormal finding on lung imaging 10/20/2017 Anxiety 10/20/2017 Chronic obstructive lung disease 10/20/2017 GERD (gastroesophageal reflux disease) 8 History of snoring 10/20/2017 Chest heaviness 02/25/2017 Family history of early CAD 02/25/2017 Decreased exercise tolerance 02/25/2017 Chest pain 02/25/2017 Hyperlipidemia 12/17/2016 Hypothyroidism Dyslipidemia Dyspnea on exertion Resolved Problems Problem Noted Date Diagnosed Date Resolved Date Encounter for preventive health examination 03/03/2017 05/10/2020 Immunizations Immunization Administration Dates Next Due Dtap 10/14/2011 Dtap (Generic) 10/14/2011 Influenza Adult (Generic) 07/06/2022,05/2022,06/28/2020,2018,07/19/2019 PFIZER COVID-19 (ORIGINAL FORMULATION, PURPLE CAP) mRNA, LNP-S, PF, 30 MCG/0.3 ML DOSE 09/08/2021 Family History Medical History Relation Comments Hypertension Brother 1 heart issues Brother 1 Stent Cardiac Brother 2 Lung Cancer Father abdominal aortic aneurysm Father Cancer Mother Lung Cancer Mother Lung Cancer Paternal Aunt pancreatic cancer Paternal Grandfather Colon Cancer Paternal Grandmother Lung Cancer Paternal Uncle Breast Cancer Sister Hyperlipidemia Sister Hypertension Sister Relation Status Comments Brother 1 Alive Brother 2 Alive Brother 3 Alive Brother 4 Alive Brother 5 Alive Brother 6 Alive Father (Age 65) Maternal Grandfather (Age 96) Maternal Grandmother (Age 96) Mother (Age 82) Paternal Aunt Paternal Grandfather Paternal Grandmother Paternal Uncle Sister Alive Social History Tobacco Use Types Packs/Day Years Used Date Smoking Tobacco: Former Cigarettes 1 33 1 08/30/1982 - 06/30/2016 Smokeless Tobacco: Never Tobacco Cessation:Counseling Given: Yes Alcohol Use Standard Drinks/Week Comments Yes 0 (1 standard drink = 0.6 oz pur e alcohol) 2 DRINKS WEEKLY PHQ-2 Answer Date Recorded Patient Health Questionnaire-2 Score 0 07/15/2023 Comments Unknown Sex and Gender Information Value Date Recorded Sex Assigned at Not on file Legal Sex Female 1:51 PM CDT Gender Identity Not on file Sexual Orientation Not on file 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 Not on file Not on file Last Filed Vital Signs Vital Sign Reading Time Taken Comments Blood Pressure 121/67 07/26/2024 9:57 AM FLOORING INSTALLER Pulse 83 07/26/2024 9:57 AM FLOORING INSTALLER Temperature 36.6 C (97.9 F) 07/26/2024 9:57 AM FLOORING INSTALLER Respiratory Rate 18 07/26/2024 9:57 AM FLOORING INSTALLER Oxygen Saturation 98% 07/26/2024 9:57 AM FLOORING INSTALLER RA Inhaled Oxygen Concentration - - Weight 79.8 kg (176 lb) 07/26/2024 9:57 AM FLOORING INSTALLER Height 172.7 cm (5' 8) 07/26/2024 9:57 AM FLOORING INSTALLER Body Mass Index 26.76 07/26/2024 9:57 AM FLOORING INSTALLER Plan of Treatment Upcoming Encounters Date Type Department Care Team (Late st Contact Info) Description 08/02/2025 9:00 AM FLOORING INSTALLER Office Visit [facility] Multispecialty Care - [address] [place] [address] Mitchell Reyes MD 3 [facility] [address] [place] [id number] Health Maintenance Due Date Last Done Comments Colorectal Cancer Screening Colonoscopy (10 Years) 1966 Annual Physical 1969 Hepatitis C 02/20/1984 Pneumococcal Vaccine: 50+ Years (1 of 2 - PCV) 1985 Zoster Vaccines (2 of 2) 09/27/2022 08/02/2022 PHQ-2 (Physician [place]) 08/30/2024 07/15/2023 COVID-19 Vaccine ( season) 2025 08/02/2022, 09/08/2021, 11/01/2020 Influenza Adult (#1) 2025 10/04/2023, 07/06/2022, 09/08/2021, Additional history exists Lung Cancer Screening 07/11/2025 07/11/2024, 023 Mammogram Screening 10/13/2025 10/13/2023, 09/18/2020, 05/18/2019, Additional history exists Cervical Cancer Screening Pap Smear (Age 30 to 64) Every 3 Years 10/21/2025 10/21/2022, 10/15/2022 Cervical Cancer Screening Pap with HPV Testing (Age 30 to 64) Every 5 Years 10/15/2027 10/15/2022 Cervical Cancer Screening with HPV 10/15/2027 DTaP, Tdap and Td Vaccines (4 - Td or Tdap) 10/04/2033 10/04/2023, 10/14/2011, 10/14/2011 Hepatitis A Vaccines Aged Out No long er eligible based on patient's age to complete this topic Meningococcal B Vaccine Aged Out No l onger eligible based on patient's age to complete this topic Meningococcal Vaccine Aged Out No bandar michelle eligible based on patient's age to complete this topic RSV Immunizations Under 20 Months Aged Out No longer eligible based on patient's age to complete this topic Procedures Procedure Name Priority Date/Time Associated Diagnosis Comments CT LUNG SCREENING Routine 07/11/2024 10: 11 AM FLOORING INSTALLER Former smoker from Last 3 Months or Most Recently Relevant to Health Maintenance Results * CT LUNG SCREENING (07/11/2024 10:11 AM FLOORING INSTALLER) Anatomical Region Laterality Modality Chest Computed Tomogra phy 07/12/2024 2:41 PM FLOORING INSTALLER Impressions 07/12/2024 2:46 PM FLOORING INSTALLER IMPRESSION: 1. LUNG-RADS category 1: Negative-no nodules and definitely benign nodules. 2. LUNG-RADS category S: Negative, no new/unknown potentially significant incidental findings requiring urgent additional evaluation. 3. Other incidental findings as above. RECOMMENDATIONS: Follow-up LDCT Chest in 12 months (on or around 07/12/2025). Referred By: MITCHELL REYES Interpreted By: Chandrakant Garcia MD, 07/12/2024 2:41 PM Narrative 07/12/2024 2:46 PM FLOORING INSTALLER [address] [id number] EXAM: LUNG SCREENING LOW-DOSE CT THORAX WITHOUT [...] thoracic aorta and coronary arteries. Colonic diverticulosis. Procedure Note Chandrakant Garcia MD - 07/12/[address] [address] EXAM: LUNG SCREENING LOW-DOSE CT THORAX WITHOUT CONTRAST DATE: 07/11/2024 HISTORY: Asymptomatic patient meeting NCCN high-risk criteria for lungscreening. COMPARISON: CT lung screening 07/09/2023 TECHNIQUE: Noncontrast, helical, low-dose CT (LDCT) chest per standarddepartmental protocol. Automated exposure control was utilized for dosereduction. FINDINGS: Lung Screening Specific (LUNG-RADS): No suspicious pulmonary nodules. Previously seen right upper lobe nodule is not visualized. Potentially Significant Incidentals (LUNG-RADS category S): None. Pulmonary Incidentals: Moderate upper lobe predominant centrilobularemphysema. Bibasilar subsegmental atelectasis. Other Incidentals: Mild atherosclerotic plaque of the thoracic aorta andcoronary arteries. Colonic diverticulosis. IMPRESSION: 1. LUNG-RADS category 1: Negative-no nodules and definitely benignnodules. 2. LUNG-RADS category S: Negative, no new/unknown potentially significantincidental findings requiring urgent additional evaluation. 3. Other incidental findings as above. RECOMMENDATIONS: Follow-up LDCT Chest in 12 months (on or [id number]/12/2025). Referred By: MITCHELL REYES Interpreted By: Chandrakant Garcia MD, 07/12/2024 2:41 PM Mitchell Reyes MD CT Final Result from Last 3 Months or Most Recently Relevant to Health Maintenance Insurance [facility] Care Teams Melter Helper Relationship Specialty Start Date End Date Екатерина Bowers PA [address] [address] PCP - General FAMILY PRACTICE 07/10/24 Renu Mckeon MD [address] [address] [employer] Operator Helper CARDIOVASCULAR DISEASE 01/28/17
--- OUTSIDE RECORDS SUMMARY | 2025-07-07 10:05 | XMS_ITS | Encounter Summary ---
Author Organization [facility] Address [address] [place] [id number] Care Team Providers Care Book Coverer Name Role Phone Augusto Guzmán MD Primary Care Provider [phone] Renu Mckeon MD Unavailable [phone] Екатерина Bowers Primary Care Provider [phone] Encounter Details Date Type Department Care Team (Late Contact Info) Description 02/26/2017 Abstract [facility] AT [address] [address] Tami Pratt MA Social History Tobacco Use Types Packs/Day Years Used Date Smoking Tobacco: Former Cigarettes 1 33 1 08/1982 - 06/2016 Smokeless Tobacco: Never Alcohol Use Standard Drinks/Week Comments Yes 0 (1 standard drink = 0.6 oz pur e alcohol) 2 DRINKS WEEKLY Comments Unknown Sex and Gender Information Value Date Recorded Sex Assigned at Not on file Legal Sex Female 1:51 PM CDT Gender Identity Not on file Sexual Orientation Not on file 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 Industry 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 Start Date Job 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 [employer] Not on file Not on file Not on file documented as of this encounter Plan of Treatment Upcoming Encounters Date Type Department Care Team (Late Contact Info) Description 08/02/2025 9:00 AM PRIMARY SUBSTANCE ABUSE COUNSELOR Office Visit [facility] Medical Group Multispecialty Care - [address] [place] [address] Tre Huff MD 3 [facility] [address] [place] [address] documented as of this encounter Procedures Procedure Name Priority Date/Time Associated Diagnosis Comments CBC (OUTSIDE LAB) Routine 10/06/2016 THYROXINE, FREE (FT4) Routine 10/06/2016 THYROID STIM HORMONE TSH Routine 10/06/2016 documented in this encounter Results * THYROXINE, FREE (FT4) (10/06/2016) FREE T4 1.1 10/06/2016 [facility] Final Result * THYROID STIM HORMONE, TSH (10/06/2016) TSH 2.21 10/06/2016 [facility] Final Result * CBC (OUTSIDE LAB) (10/06/2016) WBC 6.6 HGB 13.8 HCT 42.3 PLT 201 10/06/2016 us [facility] Abstract LAB-OUTSIDE/ABSTRACTED Edite d Result - Final documented in this encounter Visit Diagnoses Not on filedocumented in this encounter Additional Health Concerns Infection Onset Date Last Indicated Resolved Time COVID-19 Rule Out 06/07/2020 06/07/2020 06/08/2020 11:01 PM CDT documented as of this encounter Care Teams Book Coverer Relationship Specialty Start Date End Date Augusto Guzmán MD PCP - General FAMILY PRACTICE 01/28/17 07/09/24 Екатерина Bowers PA [address] [place] [address] PCP - General FAMILY PRACTICE 07/10/24 Renu Mckeon MD [address] [address] [place] [employer] Service Supervisor CARDIOVASCULAR DISEASE 01/28/17 documented as of this encounter
--- OUTSIDE RECORDS SUMMARY | 2025-07-07 10:05 | XMS_ITS | Data Portability ---
Author Organization [facility]CJennifer[facility] Address [address] [place] [address] Care Team Providers Care Dental Assistant Name Role Phone BLAYNE RAYMUNDO Primary Care Provider Assessment Encounter Date Assessment Date Assessment LastModified by Organization Details LastModified Time 10/21/2022 10/21/2022 Annual gynecological exam performed. Patient will come back in a year unless there are new symptoms. [email or web address] Not available 10/21/2022 10:08:13 07/18/2024 07/18/2024 Annual gynecological exam performed. Patient will come back in a year unless there are new symptoms. [email or web address] Not available 07/18/2024 10:44:16 Plan of Treatment Reminders Order Date Submit Date Provider Last Modified By Organization Details Last Modified Time Details Appointments None recorded . Lab None recorded . Referral None recorded . Procedures None recorded . Surgeries None recorded . Imaging MAMMO, screenin g, digital, bilatera l 2023 024 LOTTIE Not available 05:00:55 MAMMO, screenin g, digital, bilatera l 2022 023 [facility] [place], [address] [place] [address], [address], 3 12:12:37 US, pelvis, complete 2022 023 reyna [place], [address], [address], [place], [address], 3 14:07:14 US, pelvis 2022 023 [email or web address] [facility], [address], [place], [address], 3 15:00:45 US, transvag inal 2022 023 LOTTIE [facility], [address], [place], [address], 3 18:13:27 US, pelvis, complete 2022 023 [email or web address] [facility], [address], [place], [address], 3 16:38:07 Medication Orders None recorded . Patient TargetsNo targets recorded. Patient InstructionsNo instructions recorded. Reason for Referral None Reported. Results Created Date Observation Date Name Description Value Unit Range Abnormal Flag Note LastModifiedBy Organization Detail LastModifiedTime 10/15/1910/15/2022 CT/GC AND TRICH OMONA S VAGIN MARGRET (RRNA ), SWAB chlamydia trachomatis, PCR Negati ve negati ve Not Available [facility] (Lab) [address], [place], [address], 10/17/2022 07:16:22 10/15/19 23 10/15/2022 CT/GC AND TRICH OMONA S VAGIN MARGRET (RRNA ), SWAB neisseria gonorrhoeae, PCR Negati ve negati ve Not Available [facility] (Lab) [address], [place], [address], 10/17/2022 07:16:22 10/15/19 23 10/15/2022 CT/GC AND TRICH OMONA S VAGIN MARGRET (RRNA ), SWAB trichomonas vaginalis ribosomal RNA (rrna) Negati ve negati ve Not Available [facility] (Lab) [address], [place], [address], 10/17/2022 07:16:22 10/15/19 23 10/15/2022 CULTU RE: URINE result report SEE RESULT S BELOW Test: Cultu re: Urine Speci men Sourc e: Urine Voide d Speci men Type: Urine Speci men Date: 2022 12:50 PM Resul t Date: 2022 6:12 AM Resul t Statu s: Final resul t Abnor mal: No Resul ting Lab: [facility] [address] [facility] [address] Tel: CULTU RE ----- ----- ----- --- No growt h in 1 day (dete ction level of 10,00 0 colon ies / ml.) Not Available [facility] (Lab) [address] [facility], [place], [address], 10/17/2022 07:16:23 10/21/19 23 10/21/2022 IMAGE GUIDE D PAP AND HPV REGAR DLESS image guided Pap, HPV regardless of Pap result SEE RESULT S BELOW CASE REPOR T: Cytol ogy Gynec ologi mandy Repor t Case: [id number] Autho herson guillen Provi liana: Misti Carvajal, VIRAJ Colle cted: 10/21 1118 Order ing Locat ion: [place] [facility] Recei doug: 10/22 0856 First Scree n: Abdulkadir Alonso am, CT Speci men: Scree sahil Pap - Image d, Cervi x STATE MENT OF ADEQU ACY: Satis facto ry for evalu ation Trans forma tion zone compo nent prese nt FINAL DIAGN OSIS: Negat shirin for Intra epith elial Lesio n or Ely mora (NIL) . Dudley norris beatris d by Abdulkadir Alonso am, CT on 2022 at 9:00 AM ----- ----- ----- ----- ----- ----- ----- ----- ----- ----- ----- ----- ----- ----- ----- ----- ----- ---- HPV RESUL TS: HPV mRNA E6/E7 : No HPV mRNA Detec emily NOTE: This high risk HPV mRNA assay detec ts fourt een high- risk HPV types (16, 18, 31, 33, 35, 39, 45, 51, 52, 56, 58, 59, 66, 68) witho ut diffe renti ation . COMME NT: Note: This speci men was revie wed by a Cytot echno logis t and/o r Patho logis t (as indic ated in this repor t) after evalu ation using the Thinp rep Imagi ng Syste m. CLINI MANDY INFOR MATIO N: Menst rual Statu s: LMP (if appli cable ): Clini mandy Histo ry/Pr eviou s Pap: Type of Neopl margoth (if appli cable ): Signi fican t Clini mandy Findi ngs: Other Histo ry: Hormo colton (if appli cable ): PAP EDUCA SHUN L NOTE: The Pap Test is a scree sahil test with an inher ent false negat shirin rate. Liqui d-bas ed sampl ing may decre ase, but will not elimi tamika, false negat shirin resul ts. A negat shirin resul t does not precl ude the prese nce and/o r devel opmen t of disea se, since the prese nce of abnor mal cells in the sampl e depen ds on the locat ion of the lesio n and sampl ing techn ique. Alexander nued regul ar scree sahil is the best metho d of cance r preve ntion . If repor emily cytol ogic findi ng do not corre late with physi mandy and/o r histo rical findi ngs, furth er inves tigat ion is recom jean d, as clini deuce monsalve nted. Not Available [facility] (Lab) [address], [place], [address], 10/26/2022 10:02:48 10/21/19 23 10/21/2022 CULTU RE: HERPE S SIMPL EX VIRUS (HSV) , REFLE X TYPIN G source SWAB Not Available [facility] (Lab) [address] [facility], [place], [address], 10/26/2022 21:23:05 10/21/19 23 10/21/2022 CULTU RE: HERPE S SIMPL EX VIRUS (HSV) , REFLE X TYPIN G hsv culture, body fluid NOT ISOLAT ED REFER ENCE RANGE : NOT ISOLA EMILY ureth ral meatu s Perfo rming Organ izati on Infor matio n: Site ID: [id number] Name: [facility]Jaron hols [facility] Kike Petty traneliane , Addre ss: [id number] [facility] [place] [address] Direc tor: Cleo [email or web address] MD,Ph D,EVANGELISTA Not Available [facility] (Lab) [address] [facility], [place], [address], 10/26/2022 21:23:05 10/16/19 23 10/16/2022 US, pelvi s No observ ation record ed. [email or web address] [facility] [address], [place], [address], 10/16/2022 18:13:51 10/16/19 23 10/16/2022 US, trans vagin al No observ ation record ed. [email or web address] [place] [address], [place], [address], 10/16/2022 18:13:27 10/16/19 23 10/16/2022 US, pelvi s No observ ation record ed. [email or web address] Wren [address], [place], [address], 10/20/2022 11:57:16 10/16/19 23 10/16/2022 US, pelvi s No observ ation record ed. [email or web address] Siena [address] [address], [place], [address], 10/20/2022 11:57:16 Result Notes None recorded. Procedures Surgical History Date Name Laterality Status Provider Name and Address Organization Details Recorded Time 07/18/20 24 Date of Last Pap Smear completed [facility] 07/18/2024 18:36:07 02/12/20 17 biopsy of vulva completed [facility] 09/23/2024 15:16:45 08/30/19 15 Colposcopy completed [facility] 09/23/2024 15:17:38 08/30/19 07 endometrial ablation completed [facility] 07/18/2024 10:50:34 08/30/18 87 Thyroid Surgery completed [facility] 07/18/2024 10:50:26 08/30/18 77 Tonsillectomy completed [facility] 07/18/2024 10:51:26 Imaging Results None recorded. Procedure Notes None recorded. Medical Equipment None Reported. Allergies No known drug allergies Medications Name Sig Start Date Stop Date Status Note LastModified by Organization Details LastModified Time azelastin e 0.05 % eye drops INSTILL 2 DROPS TWICE A DAY BY OPHTHALM IC ROUTE NEEDED FOR 30 DAYS. active Not Available Not Available No t Available ketoconaz ole 200 mg tablet TAKE 1 TABLET BY MOUTH EVERY DAY 07/18 completed Not Available Not Available Not Available benzonata te 200 mg capsule TAKE 1 CAPSULE BY MOUTH THREE TIMES DAILY NEEDED FOR COUGH 10/15 completed Not Available Not Available Not Available clobetaso l 0.05 % topical cream 07/18 completed Not Available Not Available Not Available triamcino lone acetonide 0.1 % topical cream APPLY THIN LAYER TO THE AFFECTED AREA OF CHEST TWICE DAILY FOR 2 WEEKS THEN TAKE A 2 WEEK BREAK AND REPEAT NEEDED active Not Available Not Available No t Available levothyro xine 75 mcg tablet TAKE 1 TABLET BY MOUTH EVERY DAY 10/15 completed Not Available Not Available Not Available dextroamp hetamine- amphetami ne ER 20 mg 24hr capsule,e xtend release TAKE 1 CAPSULE BY MOUTH EVERY DAY IN THE MORNING active Not Available Not Available No t Available levothyro xine 50 mcg tablet 1 tablet every day by oral route. active Not Available Not Available No t Available codeine 10 mg-guaife nesin 100 mg/5 mL oral liquid TAKE 10 ML BY MOUTH EVERY 4 TO 6 HOURS NEEDED FOR COUGH 10/15 completed Not Available Not Available Not Available methylpre dnisolone 4 mg tablets in a dose pack FOLLOW PACKAGE DIRECTIO NS 10/15 completed Not Available Not Available Not Available albuterol sulfate HFA 90 mcg/actua tion aerosol inhaler INHALE 2 PUFFS BY MOUTH EVERY 4 HOURS NEEDED FOR WHEEZE OR FOR SHORTNES S OF BREATH active Not Available Not Available No t Available Zoloft 25 mg tablet TAKE 1 TABLET BY MOUTH EVERY DAY 10/14 completed Prescrib ed Elsewbanner e: No Locat ion: [facility] odify By: lena vallecillo DateTime : 05/18/20 17 10:24:27 AM Not Available Not Available Not Available fluticaso ne propionat e 50 mcg/actua tion nasal spray,tariq pension SPRAY 1 SPRAY BY NASAL ROUTE EVERY DAY active Not Available Not Available No t Available clotrimaz ole 1 % topical cream APPLY TO THE AFFECTED AND SURROUND ING AREAS TWICE DAILY IN THE MORNING AND EVENING FOR 14 DAYS 07/18 completed Not Available Not Available Not Available rosuvasta tin 10 mg tablet 1 tablet every day by oral route. 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 active Not Available Not Available No t Available Taltz Autoinjec tor 80 mg/mL subcutane ous 07/18 completed Not Available Not Available Not Available Skyrizi 150 mg/mL subcutane ous pen injector 07/18 completed Not Available Not Available Not Available Vitals Date Recorded Body height Body mass index (BMI) Body weight Systolic And Diastolic Provider Name and Address Organization Details Last Updated DateTime 10/15/2022 172.72 cm 26.9 kg/m2 90839.13 g 114/75 mm[Hg] [facility] 10/15/2022 10:16:10 Date Recorded Body height Systolic And Diastolic Provider Name and Address Organization Details Last Updated DateTime 10/20/2022 172.72 cm 118/78 mm[Hg] [facility] 10/20/2022 10:36:30 Date Recorded Body height Body mass index (BMI) Body weight Systolic And Diastolic Provider Name and Address Organization Details Last Updated DateTime 10/21/2022 172.72 cm 26.9 kg/m2 87314.13 g 107/74 mm[Hg] [facility] 10/21/2022 10:08:30 Date Recorded Body height Body mass index (BMI) Body weight Systolic And Diastolic Provider Name and Address Organization Details Last Updated DateTime 07/18/2024 172.72 cm 26.9 kg/m2 79706.85 g 124/82 mm[Hg] Yamilet Swift [facility] 07/18/2024 10:48:28 Social History Question Answer Notes LastModified by Organizat ion Details LastModified Time Tobacco Smoking Status Never Smoker Selene Davis [facility] 10/21/2022 09:58:19 How Many Years Have You Consumed Alcohol? 35 Information not available 10/20/2022 Are You Blind Or Do You Have Difficulty Seeing? No Information n ot available 10/15/2022 What Is Your Level Of Caffeine Consumption? Moderate Information not available 10/20/2022 How Much Tobacco Do You Chew? None Information not available 10/20/2022 In The 14 Days Before Symptom Onset, Have You Had Close Contact With A Laboratory-confirm ed COVID-19 While That Case Was Ill? No Information n ot available 10/20/2022 In The 14 Days Before Symptom Onset, Have You Had Close Contact With A Person Who Is Under Investigation For COVID-19 While That Person Was Ill? No Information not available 10/20/2022 Have You Been To An Area Known To Be High Risk For COVID-19? No Information not available 10/20/2022 Are You Deaf Or Do You Have Serious Difficulty Hearing? No Information not available 10/15/2022 What Type Of Diet Are You Following? REGULAR Information n ot available 10/15/2022 What Is The Highest Grade Or Level Of School You Have Completed Or The Highest Degree You Have Received? [id number] Information not available 10/20/2022 Are There Any Guns Present In Your Home? No Information not available 10/20/2022 Do You Use Protection During Sex? No Information not available 10/20/2022 Do You Use Your Seat Belt Or Car Seat Routinely? Yes Information not available 10/20/2022 Do You Have Smoke And Carbon Monoxide Detectors In Your Home? Yes Information not available 10/20/2022 At What Age Did You Start Smoking Tobacco? 16 Information not available 10/20/2022 How Much Tobacco Do You Smoke? No Information not available 10/20/2022 Do You Use Sunscreen Routinely? Yes Information not available 10/20/2022 Have You Used IV Drugs? No Information not available 10/20/2022 Do You Have Difficulty Walking Or Climbing Stairs? No Information not available 10/21/2022 Sex: Unknown Functional Status Question Answer Note LastModified by Organizat ion Details LastModified Time Do you use any illicit or recreational drugs? No Information not available 10/20/2022 What is your level of alcohol consumption? Occasional Information not available 10/15/2022 Are you able to walk independently without assistance or assistive devices? YESWOREST Information not available 10/15/2022 Are you able to care for yourself independently? 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 No [email or web address] Information not available 10/21/2022 What is your exercise level? Occasional Information not available 10/15/2022 Mental Status Question Answer Note LastModified by Organization D etails LastModified Time Do you feel stressed (tense, restless, nervous, or anxious, or unable to sleep at night)? [id number] Information not available 10/20/2022 Family History Relationship Description Onset Age of this Age Resolved Age Notes LastModified by Organization Details LastModified Time Brother Diabetes mellitus [email or web address] Not available 09/30 10:19:36 Brother Hyperlipidem ia Not available 2023 10:26:11 Father Hyperlipidem ia [email or web address] Not available 2023 10:26:11 Father Malignant neoplasm of lung [email or web address] Not available 09/30 10:20:39 Mother Malignant neoplasm of lung [email or web address] Not available 09/30 10:20:21 Sister Malignant neoplasm of breast [email or web address] Not available 09/23 15:16:06 Sister Hypertensive disorder Not available 09/23 15:16:13 Notes:Father: Cancer, lung M other: Cancer, lung Sister: Cancer, breast, Hypertension Medical History Condition Response Allergies (Food, seasonal, environmental ) Y Other Y Breast Cancer N Drug/Latex Allergies/Reactions N Blood Transfusion N Dermatologic Disorders N Lung Disease N Defects or Inherited Disease N Breast Problem N Gestational Diabetes N Hematologic disorders N Anesthesia Complications N History of STI N Deep Vein Thrombosis N Polycystic ovary syndrome N Anxiety Disorder Y Autoimmune disease N Arthritis Y Infertility N Polyps N Acid Reflux (GERD) N History of abnormal pap Y Cancer N Stroke N Varicosities N Neurologic/Epilepsy Y Endometriosis N High Cholesterol Y Headaches N Fibromyalgia N Kidney Disease N Heart Problems N Kidney or Bladder Problems N Thyroid Problems Y GI Problems N Eating Disorder N Anemia N Art (IVF or FET) N Psychiatric Illness Y Ovarian Cancer N Diabetes N Pulmonary (TB, Asthma) N Hepatitis/Liver Disease N No Past Medical History N Eczema N Urinary Tract Infection N Abuse/Domestic Violence N Asthma Y Trauma/Violence N Depression/ depression Y Heart Disease N Pre-Eclampsia N Hypertension N Osteoporosis N Thrombophilias N Gynecological History Statement/Question Response Abnormal Pap Y Date of LMP 08/30/2006 STIs/STDs N HPV Vaccine N Colposcopy Current Control Method Menopause Age at First Child 19 Date of Last Colonoscopy Sexually Active? Y Date of DEXA bone scan Age of first menstrual cycle 14 Date of Last Pap Smear 07/18/2024 Sexual Problems? N Desired Control Method Ablation LMP Approximate Obstetrics History GPAL:G 4 P 4 0 0 4 Type Value Full Term 4 Living 4 Total 4 Past Encounters Encounter ID Performer Location Encounter Start Date Encounter Closed Date Diagnosis/Indication Diagnosis SNOMED-CT Code Diagnosis ICD10 Code Diagnosis IMO Codes Diagnosis Note [id number] TERRI [place]ima [place] [address] [address] 10/15/2022 09:53:29 10/15/2022 11:09:27 Pain in pelvis 63566190 R10.2 This patient is a 57 -year-old female with pelvic pain. We have agreed to complete the evaluation with pelvic ultrasound . The patient will return after the pelvic ultrasound to discuss those findings and to develop a treatment plan. A comprehens shirin history and physical exam was performed today. We spent over 25 minutes face-to-fa ce. The patient was given precaution s. She will contact clinic if pelvic pain increases in frequency or intensity. Also notify clinic of any new symptoms associated with pelvic pain. She does not appear to have an acute pelvic infection today, but was asked to contact us Immediatel y with nausea, vomiting, fever, chills. UA today normalCx sentSTI endocervic al testing sentIncrea se fiber, increase water intakeRTC for pelvic u/s and f/u Venereal d isease screening 298326774 Z11.3 [id number] Cesario Aguirre MD [facility] [address] [address] 10/16/2022 11:55:40 10/16/2022 14:04:49 Pain in pelvis [id number] R10.2 [id number] TERRI Lima [place] [address],[facility] [place] [address] 10/20/2022 10:24:54 10/20/2022 11:05:44 Pain in pelvis 33600673 R10.2 Reviewed recent updated TVUS - calcified foci in endometriu m, normal appearing ovaries, normal atrophic uterus. Thin endo. Hypoechoic area in cervixWe discussed normal appearing ovaries, normal appearing post menopausal / post ablation uterus. Discussed possible hypoechoic area in cervix - we agreed to repeat u/s in 8 weeks to re-evaluat e this area.Her pain has resolved, feeling wellRTC in 8 weeks for repeat u/sTo notify the office with any new symptoms Time spent in visit is a total of 15 mins with at least 50% of visit consisting of counseling and review of plan of care. [id number] TERRI Lima [place] [address],[facility] [place] [address] 10/21/2022 09:57:57 10/21/2022 11:06:02 Gynecologic examination [id number] Z01.419 Take Calcium with Vitamin D 12-1500mg daily. Do monthly self breast exams. It is advised to get annual flu shot in the fall and she could obtain at [facility] or [facility]. If you haven't received the Tdap vaccine in the last 10 years you should obtain one as well. Have mammogram yearly, bone density every 2-3 years and colonoscop y every 5-10 years depending on findings and history. Engage in daily exercise of low impact aerobic exercise 45-60 minutes 4-5 times weekly. Avoid tobacco and illicit drugs as well as using moderation with alcohol intake less than 1-2 8 oz beverages daily. This lifestyle behavior pattern will lead to less health conditions and longer life span. If BMI greater than 25 weight watchers or dietary consult advised. Questions have been answered. Patient appears to understand instructio ns, but if you have any further questions call or respond to this email WWEPostmen opausalHx of abnormal pap in her 20's, normal sinceLast pap 2018 - normalPap done todaySTI testing declinedMa mmogram order givenUTD on colonoscop yUTD with PCP Screening for malignant neoplasm of breast [id number] Z12.39 A sore at urethral meatus [id number] N34.2 Irritation /redness noted near urethral meatus. No pain, itching, or discomfort noted by patient. HSV swab sent. Vulvar care guidelines discussed, encouraged crisco twice daily to vulva, use this as lubricatio n as well. RTC in 2-3 weeks for revaluatio n, if persist - will need MD consult to discuss biopsy. [id number] TERRI Lima [place] [address] [address] 07/18/2024 10:24:05 07/18/2024 12:10:08 Gynecologic examination [id number] Z01.419 WWEpostmen opausalpap not indicated todaydecli tish STI screenmamm ogram order givencolon oscopy UTDroutine labs- PCP Do monthly self breast exams. It is advised to get annual flu shot in the fall and she could obtain at [facility] or [facility]. If you haven't received the Tdap vaccine in the last 10 years you should obtain one as well. Have mammogram yearly, bone density every 2-3 years and stay up to date on colon cancer screening. Engage in regular exercise. Avoid tobacco and illicit drugs. This lifestyle behavior pattern will lead to less health conditions and longer life span. If BMI greater than 25 dietary consult advised. Questions have been answered. Screening for malignant neoplasm of breast [id number] Z12.39 Health Concerns Section Related Observation LastModified by Organization Detai ls LastModified Time None Recorded Concern Status LastModified by Organization Details LastModified Time None Recorded Advance Directives Directive None Recorded Payers Insurance Date Sequence Insurance Name Policy Number Policy Dang Covered Member ID Dang Member ID Guarantor Name 07/17/2024 2 [facility] ([employer]) [id number] Uvaldo Witt [id number] Shanta Witt 07/18/2024 1 [place] [id number] Uvaldo Witt [id number] Shanta Witt 07/17/2024 1 [place] [id number] Uvaldo Witt [id number] Shanta Witt Notes Date Note Type Note Provider Name and Address Organization Details Recorded Time 3 text/html [id number] for evaluation of pelvic painEndometrial ablation in 2006 for AUB, no periods sinceSymptoms started 4-5 days ago. A pressure sensation in the lower abdomen/pelvis. Symptoms come and go. No urinary sx's. Bowel movements have been slightly irregular, some constipation. No vaginal sx's, fevers, flank pains, flu-like symptoms, n/vSA with steady male partnerHx of abnormal pap in her 20's, required procedure. Normal paps since. Last pap 2018 TERRI Lima [address], [place], [address], [facility] 10/15/2022 10:37:53 3 text/html 57yoPresents for pelvic u/s f/uPelvic pain has since resolved, feeling well TERRI Lima [address], [place], [address], [facility] 10/20/2022 10:57:02 3 text/html Annual Mental Health Practitioner Post-MenopausalReported by PatientGenitourinary symptomsFor menopausal symptoms, patient reportsno menopausal symptomsandnormal vaginal lubrication. For vaginal bleeding, patient reportshistory of menopause having occurredandno history of post menopausal bleeding. For urinary symptoms, patient reportsno hematuria,no incontinence,no nocturia, andno urinary frequency. For vulva, patient reportsno genital lesionandno vulvar atrophy. For vagina, patient reportsnormal vaginal dischargeandno vaginal atrophy.Breast symptomsFor breast, patient reportsno breast lump,no nipple discharge, andno breast pain.Psychological symptomsFor sexual complaints, patient reportsno sexual complaints. For psychological symptoms, patient reportsno depressionandno anxiety.Preventative measuresFor preventive measures, patient reportsencourage regular mammograms starting age 40,encourage self breast examination,encourage regular exercise, andencourage no tobacco use. [address], [place], [address], [facility] 10/21/2022 11:02:44 4 text/html Annual Mental Health Practitioner Post-MenopausalReported by PatientGenitourinary symptomsFor menopausal symptoms, patient reportsno menopausal symptomsandnormal vaginal lubrication. For vaginal bleeding, patient reportshistory of menopause having occurredandno history of post menopausal bleeding. For urinary symptoms, patient reportsno hematuria,no incontinence,no nocturia, andno urinary frequency. For vulva, patient reportsno genital lesionandno vulvar atrophy. For vagina, patient reportsnormal vaginal dischargeandno vaginal atrophy.Breast symptomsFor breast, patient reportsno breast lump,no nipple discharge, andno breast pain.Psychological symptomsFor sexual complaints, patient reportsno sexual complaints. For psychological symptoms, patient reportsno depressionandno anxiety.Preventative measuresFor preventive measures, patient reportsencourage regular mammograms starting age 40,encourage self breast examination,encourage regular exercise, andencourage no tobacco use.59yo WWEpostmenopausallast pap 09/2022 : nilm, HPV (-)h/o abnormal pap in her 20's, normals since [address] [address], [place], [address], [facility] 07/18/2024 11:52:53 OBGyn Episode Ob Episode Information Episode Created Date Number of Fetuses Patient Bloodtype Patient rh Status Prepregnancy Weight lbs Domestic Partner Domestic Partner Phone Father Name Complex Director Status 10/15/19 23 1 CLOSED Fetus Data First Name Last Name Admitted to NICU Weight (g) Sex Living Outcome Pediatric Complications Fetus ID Race Codes Race Delivery Type 3430.06 2704 F Full Term [id number] Vaginal Delivery Navjot Calculation Initial Navjot Date Initial Exam Date Initial Exam Provider Initial Ultrasound Date Last Menstrual Period Date Ultra Sound Weeks Gestation 0 Eighteen To Twenty Week Navjot Update Ultra Sound Date Fundal Height At Umbil Quickening Date Ultra Sound Latest Weeks Gestation Final Navjot Confirmed By Final Navjot Confirmed Date Final Navjot Date Ultra Sound Latest Days Gestation 0 0 Menstrual History Last Menstrual Date Menses Monthly On Bcp Conception Prior Menses Frequency Hcg Plus Date Menarche Onset Age Delivery Information Delivery Date Delivery Type Labor Anesthesia Weeks Gestation Incision Type Labor Labor Length Hrs Delivered By Post Complications Tubal Sterilization Discharge Date Comments 9 Discharge Information Feeding Method Contraceptive Method Maternal HG B and HCT Levels Ob Episode Information Episode Created Date Number of Fetuses Patient Bloodtype Patient rh Status Prepregnancy Weight lbs Domestic Partner Domestic Partner Phone Father Name Complex Director Status 10/15/19 23 1 CLOSED Fetus Data First Name Last Name Admitted to NICU Weight (g) Sex Living Outcome Pediatric Complications Fetus ID Race Codes Race Delivery Type 3430.06 2704 F Full Term [id number] Vaginal Delivery Navjot Calculation Initial Navjot Date Initial Exam Date Initial Exam Provider Initial Ultrasound Date Last Menstrual Period Date Ultra Sound Weeks Gestation 0 Eighteen To Twenty Week Navjot Update Ultra Sound Date Fundal Height At Umbil Quickening Date Ultra Sound Latest Weeks Gestation Final Navjot Confirmed By Final Navjot Confirmed Date Final Navjot Date Ultra Sound Latest Days Gestation 0 0 Menstrual History Last Menstrual Date Menses Monthly On Bcp Conception Prior Menses Frequency Hcg Plus Date Menarche Onset Age Delivery Information Delivery Date Delivery Type Labor Anesthesia Weeks Gestation Incision Type Labor Labor Length Hrs Delivered By Post Complications Tubal Sterilization Discharge Date Comments 2 Discharge Information Feeding Method Contraceptive Method Maternal HG B and HCT Levels Ob Episode Information Episode Created Date Number of Fetuses Patient Bloodtype Patient rh Status Prepregnancy Weight lbs Domestic Partner Domestic Partner Phone Father Name Complex Director Status 10/15/19 23 1 CLOSED Fetus Data First Name Last Name Admitted to NICU Weight (g) Sex Living Outcome Pediatric Complications Fetus ID Race Codes Race Delivery Type 3656.85 8704 M Full Term [id number] Vaginal Delivery Navjot Calculation Initial Navjot Date Initial Exam Date Initial Exam Provider Initial Ultrasound Date Last Menstrual Period Date Ultra Sound Weeks Gestation 0 Eighteen To Twenty Week Navjot Update Ultra Sound Date Fundal Height At Umbil Quickening Date Ultra Sound Latest Weeks Gestation Final Navjot Confirmed By Final Navjot Confirmed Date Final Navjot Date Ultra Sound Latest Days Gestation 0 0 Menstrual History Last Menstrual Date Menses Monthly On Bcp Conception Prior Menses Frequency Hcg Plus Date Menarche Onset Age Delivery Information Delivery Date Delivery Type Labor Anesthesia Weeks Gestation Incision Type Labor Labor Length Hrs Delivered By Post Complications Tubal Sterilization Discharge Date Comments 4 Discharge Information Feeding Method Contraceptive Method Maternal HG B and HCT Levels Ob Episode Information Episode Created Date Number of Fetuses Patient Bloodtype Patient rh Status Prepregnancy Weight lbs Domestic Partner Domestic Partner Phone Father Name Complex Director Status 10/15/19 23 1 CLOSED Fetus Data First Name Last Name Admitted to NICU Weight (g) Sex Living Outcome Pediatric Complications Fetus ID Race Codes Race Delivery Type 2749.67 [id number] F Full Term [id number] Vaginal Delivery Navjot Calculation Initial Navjot Date Initial Exam Date Initial Exam Provider Initial Ultrasound Date Last Menstrual Period Date Ultra Sound Weeks Gestation 0 Eighteen To Twenty Week Navjot Update Ultra Sound Date Fundal Height At Umbil Quickening Date Ultra Sound Latest Weeks Gestation Final Navjot Confirmed By Final Navjot Confirmed Date Final Navjot Date Ultra Sound Latest Days Gestation 0 0 Menstrual History Last Menstrual Date Menses Monthly On Bcp Conception Prior Menses Frequency Hcg Plus Date Menarche Onset Age Delivery Information Delivery Date Delivery Type Labor Anesthesia Weeks Gestation Incision Type Labor Labor Length Hrs Delivered By Post Complications Tubal Sterilization Discharge Date Comments 6 Discharge Information Feeding Method Contraceptive Method Maternal HG B and HCT Levels
[2025-07-07 10:24] LABS: Add Urine Microscopic? YES; Appearance Urine Cloudy (Clear); Glucose Urine UA Negative (Negative); Leukocyte Esterase Ur Trace LEU/UL (Negative); Nitrate Urine Negative (Negative); Non Pathogenic Casts 0-2; Specific Grav Ur 1.010 (1.001-1.035)
[2025-07-07 11:01] LABS: Hematocrit 46.1 % (37.0-47.0); Hemoglobin 14.7 g/dL (12.0-15.0); Immature Granulocyte Percent A 0.4 % (0-0.5); Lymphocytes Absolute Auto 1.48 K/mm3 (0.9-3.2); Mean Corpuscular HGB Conc 31.9 g/dl (32-36); Mean Corpuscular Hemoglobin 26.5 pg (26-34); Mean Corpuscular Volume 83.2 fl (80-100); Nucleated Red Blood Cells Absolute Auto 0.000 K/mm3 (0.0-0.012); Nucleated Red Blood Cells Perc 0.0 % (0.0-0.2); Platelet Count Result 266 k/mm3 (150-375); Red Blood Count 5.54 M/mm3 (4.2-5.4); White Blood Count 10.4 K/mm3 (4.5-10.0)
[2025-07-07] MEDS: SODIUM CHLORIDE 0.9% IV 1,000 ML 999 ML IV CONT (11:08)
[2025-07-07] MEDS: HYDROmorphone HCL INJ (*CRX) 1 MG/ML SYR 0.5 MG IV PUSH (11:08)
[2025-07-07] MEDS: ONDANSETRON INJ 4 MG/2 ML VIAL IV PUSH (11:08)
[2025-07-07 11:13] LABS: Alanine Aminotransferase 20 U/L (6-35); Albumin Level 4.7 g/dL (3.5-5.1); Alkaline Phosphatase 82 U/L (38-126); Anion Gap 7 mmol/L (4-12); Aspartate Amino Transferase 29 U/L (14-36); Bilirubin,Total 0.9 mg/dL (0.2-1.3); Blood Urea Nitrogen 16 mg/dL (7-17); Calcium 9.3 mg/dL (8.4-10.2); Carbon Dioxide 26 mmol/L (22-30); Chloride 102 mmol/L (98-107); Estimated CRCL calculation 56 ml/min; Estimated Glomerular Filt Rate 59; Glucose 101 mg/dL (65-110); Lipase 292 U/L (23-300); Potassium 4.4 mmol/L (3.4-5.0); Sodium 135 mmol/L (137-145); Total Protein 8.1 g/dL (6.3-8.2)
[2025-07-07 11:24] LABS: INR 0.9; Prothrombin Time 12.7 Seconds (11.1-14.7); Troponin I < 0.012 ng/mL (0.000-0.034)
[2025-07-07 11:25] LABS: Partial Thromboplastin Time 27.6 Seconds (22.3-36.8)
[2025-07-07 12:51] VITALS: BP 131/78; PULSE 87; RESP 18; O2SAT 99
== END 2025-07-07 12:52 | disposition home or self-care (01) ==
PROVIDERS: Emergency Provider Emergency Medicine; PCP Physician Assistant
DX: K52.9 Noninfective gastroenteritis and colitis, unspecified (principal); J44.9 Chronic obstructive pulmonary disease, unspecified; E78.00 Pure hypercholesterolemia, unspecified; E89.0 Postprocedural hypothyroidism; F98.8 Other specified behavioral and emotional disorders with onset usually occurring in childhood and adolescence; Z79.899 Other long term (current) drug therapy
CPT/HCPCS: 36415; 74177; 80053; 81001; 83605; 83690; 84484; 85025; 85610; 85730; 96361; 96374; 96375; 99284; J1171; J2405; J7030; Q9967